=== PATIENT | female | born 1950 | race African-American/Black ===

== ENCOUNTER 2016-08-03 18:25 | Emergency (ER) | payer OTHER ==
[~2016-08-03] VITALS: Ht 162.6 cm; Wt 104.3 kg
[2016-08-03 18:25] VITALS: BP 196/94
[~2016-08-03 18:25] MED LIST: CELEXA 10 MG TA10 M1 PO; LABETALOL 100100 MG PO; RISPERDAL2 MG PO
[2016-08-03] MEDS ORDERED: DEPAKOTE ER500 MG PO (18:30)
[2016-08-03] MEDS ORDERED: LISINOPRIL40 MG PO (18:30)
[2016-08-03] MEDS ORDERED: MAXZIDE-25 MG1 EACH PO (18:31)
[2016-08-03] MEDS ORDERED: BENZTROPINE MES1 MG PO (18:31)
[2016-08-03] MEDS ORDERED: LOVASTATIN 20 M20 MG PO (18:31)
== END 2016-08-03 19:18 | disposition home or self-care (01) ==
LOC: ER 18:25
DX: S01.85XA Open bite of other part of head, initial encounter (principal); S61.552A Open bite of left wrist, initial encounter; S61.551A Open bite of right wrist, initial encounter; S11.95XA Open bite of unspecified part of neck, initial encounter; I10 Essential (primary) hypertension; Y99.8 Other external cause status; F31.9 Bipolar disorder, unspecified; F32.9 Major depressive disorder, single episode, unspecified; Z88.8 Allergy status to other drugs, medicaments and biological substances; W57.XXXA Bitten or stung by nonvenomous insect and other nonvenomous arthropods, initial encounter; Y93.89 Activity, other specified; Y92.89 Other specified places as the place of occurrence of the external cause

== ENCOUNTER 2016-11-23 19:10 | Emergency (ER) | payer OTHER ==
[~2016-11-23] VITALS: Ht 162.6 cm; Wt 95.3 kg
[~2016-11-23 19:10] MED LIST changes: +BENZTROPINE MES1 MG PO; +DEPAKOTE ER500 MG PO; +LISINOPRIL40 MG PO; +LOVASTATIN 20 M20 MG PO; +MAXZIDE-25 MG1 EACH PO
[2016-11-23 19:15] VITALS: BP 136/72
[2016-11-23] MEDS ORDERED: TRAMADOL 50 MG50 MG PO (19:38)
[2016-11-23] MEDS ORDERED: NAPROXEN375 MG PO (19:38)
== END 2016-11-23 20:05 | disposition home or self-care (01) ==
LOC: ER 19:10
DX: S82.51XA Displaced fracture of medial malleolus of right tibia, initial encounter for closed fracture (principal); I10 Essential (primary) hypertension; F31.9 Bipolar disorder, unspecified; Z88.1 Allergy status to other antibiotic agents; X58.XXXA Exposure to other specified factors, initial encounter; Y93.89 Activity, other specified; Y92.89 Other specified places as the place of occurrence of the external cause; Y99.8 Other external cause status

== ENCOUNTER 2017-03-17 20:28 | Emergency (ER) | payer OTHER ==
[~2017-03-17] VITALS: Ht 162.6 cm; Wt 99.8 kg
[~2017-03-17 20:28] MED LIST changes: +NAPROXEN375 MG PO; +TRAMADOL 50 MG50 MG PO
[2017-03-17 20:49] LABS: ABSOLUTE NEUTROPHILS 2.7 thou/uL (1.4-8.2); BASOPHILS 0.7 % (0.0-2.0); EOSINOPHILS 1.4 % (0.0-3.0); HEMATOCRIT 37.8 % (37.0-47.0); HEMOGLOBIN 12.7 gm/dL (12.0-15.0); LYMPHOCYTES 41.9 % (24.0-44.0); MCH 30.3 pg (26.0-34.0); MCHC 33.6 g/dL (28.0-37.0); MCV 90.2 fL (80.0-100.0); MONOCYTES 9.9 % (1.0-8.0); PLATELET COUNT 238 thou/uL (150-400); POLYS 46.1 % (36.0-66.0); RBC 4.19 mil/uL (4.20-5.00); RDW 14.3 % (10.5-14.5)
[2017-03-17 20:53] LABS: MANUAL DIFF NO
[2017-03-17 20:58] LABS: ANION GAP 7 mmol/L (7-16); BUN 18 mg/dL (7-18); CALCIUM 8.7 mg/dL (8.5-10.1); CHLORIDE 110 mmol/L (98-107); CO2 30 mmol/L (21-32); CREATININE 1.2 mg/dL (0.6-1.0); GLUCOSE 96 mg/dL (74-106); POTASSIUM 4.3 mmol/L (3.5-5.1); SODIUM 147 mmol/L (136-145)
[2017-03-17 21:04] LABS: ALBUMIN 3.1 g/dL (3.4-5.0); ALKALINE PHOSPHATASE 93 U/L (46-116); DIRECT BILIRUBIN < 0.1 mg/dL (<0.1-0.3); SGOT 20 U/L (15-37); SGPT 16 U/L (30-65); TOTAL BILIRUBIN 0.3 mg/dL (<0.1-1.0); TOTAL PROTEIN 6.5 g/dL (6.4-8.2)
[2017-03-17 21:21] LABS: URINE BILIRUBIN NEGATIVE (Negative); URINE BLOOD NEGATIVE (Negative); URINE COLOR YELLOW; URINE GLUCOSE-RANDOM* NEGATIVE (Negative); URINE KETONES NEGATIVE (Negative); URINE NITRITE NEGATIVE (Negative); URINE PROTEIN (DIPSTICK) NEGATIVE (Negative); URINE SPECIFIC GRAVITY 1.025 (1.003-1.035)
[2017-03-17 21:22] VITALS: BP 182/95
[2017-03-17] MEDS ORDERED: SENOKOT-S1 TA1 PO (21:24)
[2017-03-17] MEDS ORDERED: CITRATE OF MAG296 ML PO (21:24)
== END 2017-03-17 21:36 | disposition home or self-care (01) ==
LOC: ER 20:28
PROVIDERS: Emergency Medicine
DX: K59.00 Constipation, unspecified (principal); I10 Essential (primary) hypertension; F31.9 Bipolar disorder, unspecified; Z88.8 Allergy status to other drugs, medicaments and biological substances

== ENCOUNTER 2017-04-13 22:53 | Emergency (ER) | payer OTHER ==
[~2017-04-13] VITALS: Ht 162.6 cm; Wt 99.8 kg
[~2017-04-13 22:53] MED LIST changes: +CITRATE OF MAG296 ML PO; +MOBIC7.5 MG PO; +SENOKOT-S1 TA1 PO
[2017-04-13 23:24] LABS: ABSOLUTE NEUTROPHILS 2.7 thou/uL (1.4-8.2); BASOPHILS 1.3 % (0.0-2.0); EOSINOPHILS 1.9 % (0.0-3.0); HEMATOCRIT 38.1 % (37.0-47.0); HEMOGLOBIN 12.7 gm/dL (12.0-15.0); LYMPHOCYTES 39.9 % (24.0-44.0); MCH 29.4 pg (26.0-34.0); MCHC 33.4 g/dL (28.0-37.0); MCV 88.1 fL (80.0-100.0); MONOCYTES 11.3 % (1.0-8.0); PLATELET COUNT 226 thou/uL (150-400); POLYS 45.6 % (36.0-66.0); RBC 4.32 mil/uL (4.20-5.00); RDW 14.6 % (10.5-14.5); WBC 5.9 thou/uL (4.0-11.0)
[2017-04-13 23:24] LABS: URINE BILIRUBIN NEGATIVE (Negative); URINE BLOOD NEGATIVE (Negative); URINE COLOR YELLOW; URINE GLUCOSE-RANDOM* NEGATIVE (Negative); URINE KETONES NEGATIVE (Negative); URINE PROTEIN (DIPSTICK) NEGATIVE (Negative); URINE SPECIFIC GRAVITY 1.015 (1.003-1.035); URINE UROBILINOGEN 0.2 E.U./dl (0.2-1.0)
[2017-04-13 23:27] LABS: URINE LEUKOCYTES-REFLEX TRACE (Negative)
[2017-04-13 23:35] LABS: MANUAL DIFF NO
[2017-04-13 23:51] LABS: CALCIUM 9.3 mg/dL (8.5-10.1); CREATININE 1.2 mg/dL (0.6-1.0); POTASSIUM 3.8 mmol/L (3.5-5.1)
[2017-04-13 23:58] LABS: ALBUMIN 3.1 g/dL (3.4-5.0); TOTAL BILIRUBIN 0.2 mg/dL (<0.1-1.0); TOTAL PROTEIN 6.2 g/dL (6.4-8.2)
[2017-04-14 01:36] VITALS: BP 189/89
== END 2017-04-14 01:38 | disposition home or self-care (01) ==
LOC: ER 22:53
PROVIDERS: Emergency Medicine
DX: R10.30 Lower abdominal pain, unspecified (principal); I10 Essential (primary) hypertension; F31.9 Bipolar disorder, unspecified; Z90.710 Acquired absence of both cervix and uterus; Z88.8 Allergy status to other drugs, medicaments and biological substances

== ENCOUNTER 2017-06-21 05:49 | Emergency (ER) | payer OTHER ==
[~2017-06-21] VITALS: Ht 162.6 cm; Wt 104.3 kg
[2017-06-21 05:50] VITALS: BP 185/88
[2017-06-21] MEDS ORDERED: DELSYM30 MG/5 M1 PO (06:49)
== END 2017-06-21 06:57 | disposition home or self-care (01) ==
LOC: ER 05:49
DX: J06.9 Acute upper respiratory infection, unspecified (principal); I10 Essential (primary) hypertension; F31.9 Bipolar disorder, unspecified; Z90.710 Acquired absence of both cervix and uterus; Z88.8 Allergy status to other drugs, medicaments and biological substances

== ENCOUNTER 2018-11-12 22:53 | Emergency (ER) | payer OTHER ==
[~2018-11-12] VITALS: Ht 162.6 cm; Wt 99.8 kg
[~2018-11-12 22:53] MED LIST changes: +DELSYM30 MG/5 M1 PO
[2018-11-12] MEDS ORDERED: TRAMADOL 50 MG50 MG PO (23:52)
[2018-11-13 00:03] VITALS: BP 173/86
== END 2018-11-13 00:18 | disposition home or self-care (01) ==
LOC: ER 22:53
DX: M71.562 Other bursitis, not elsewhere classified, left knee (principal); M71.561 Other bursitis, not elsewhere classified, right knee; M13.862 Other specified arthritis, left knee; M13.861 Other specified arthritis, right knee; I10 Essential (primary) hypertension; F31.9 Bipolar disorder, unspecified; Z90.710 Acquired absence of both cervix and uterus; Z88.8 Allergy status to other drugs, medicaments and biological substances

== ENCOUNTER 2018-11-20 21:41 | Inpatient (IN) | payer OTHER ==
[~2018-11-20] VITALS: Ht 162.6 cm; Wt 104.9 kg
--- NOTE | ~2018-11-20 | H ---
[facility] [place] [address] HISTORY AND PHYSICAL Name: COLLEEN GAR Room #: 521B-B ADM IN M.R.#: [id number] Admission: 11/21/18 ������������������ Attend Phys: Wilber Winchester MD Discharge: ������������������ Date of : 52 Report #: [id number] THIS REPORT FOR: //name// CC: [facility] physician/PCP Wilber Winchester DATE OF SERVICE: 11/21/2018 PSYCHIATRIC EVALUATION IDENTIFYING INFORMATION: This is a 68-year-old -[place]er female living by herself. CHIEF COMPLAINT: "Depressed." HISTORY OF PRESENT ILLNESS: This is a 68-year-old female who herself is a poor historian, appears perplexed. The patient reports she recently moved to [place] from another stable place, that is the only stressor she has been able to identify. I do not have any collateral information at this time or old medical records. The patient reports since then she has been feeling depressed, anhedonic, low energy, low motivation, isolated, withdrawn. The patient is also worried about her financial situation, she is unable to explain exactly what. As a result, the patient has been experiencing suicidal ideations. She called 911, ambulance brought her to the hospital for further evaluation and treatment. The patient's ER note indicates she has diagnosis of bipolar disorder, schizoaffective disorder, although I do not have any medical records. She is supposed to be on Risperdal Consta, which cannot be confirmed as the pharmacy is closed. The patient denies any auditory or visual hallucinations. Again, she is somewhat of an unreliable historian because of her guardedness. She does not exhibit any racing thoughts, pressured speech, increased goal-directed activity. She denies any recreational drug and alcohol use. Urine drug screen was negative. REVIEW OF SYSTEMS: The patient denies any headache, chest pain, shortness of breath. VITAL SIGNS: Temperature 37.1, pulse 67 per minute, respirations 15 per minute, blood pressure 144/84 mmHg. PAST PSYCHIATRIC HISTORY: The patient reports multiple hospitalizations and suicide attempts in the past. She is not very clear about her diagnosis. Nevertheless, she is being followed up at [facility] and she receives long-term Risperdal Consta shot. It is not sure if it is for bipolar disorder or schizoaffective disorder. The patient endorses past suicide [facility] [address] [place] [address] HISTORY AND PHYSICAL Name: COLLEEN GAR Room #: 521B-B [facility] IN M.R.#: [id number] Admission: 11/21/18 ������������������ Attend Phys: Wilber Winchester MD Discharge: ������������������ Date of : 52 Report #: [id number] attempts. Denies any self-harm behaviors. She denies any rehab treatment for drugs and alcohol. She denies any electroconvulsive therapy. MEDICAL HISTORY: Obesity, hypertension. SURGICAL HISTORY: Cyst removal from the spine, hysterectomy. CURRENT MEDICATIONS: Depakote, risperidone, Cogentin, lovastatin, triamterene/hydrochlorothiazide, meloxicam. ALLERGIES: NORVASC. FAMILY HISTORY: Unknown. PERSONAL AND SOCIAL HISTORY: The patient is guarded, is not a very reliable historian. She is single. She has one son. The patient lives by herself in a senior housing. She receives services at [facility]. The patient denies any recreational drug and alcohol use. MENTAL STATUS EXAMINATION: A 68-year-old -[place] female, appears to be of her stated age. She is casually dressed, disheveled appearing. She is alert and oriented to time, place, person and situation; attentive to the questions of the examiner, though concentration is poor. She exhibits deficit symptoms of affective flattening, monotonous speech, monosyllabic in nature. She appears guarded, somewhat paranoid, but no alyson delusions. She does not appear to be responding to internal stimuli. Mood is depressed. Affect is flat. Immediate, recent and remote memory is intact. Insight and judgment is limited. Suicidal ideations present. No homicidal ideations. She denies any intent or plan at this time. ASSETS: Verbal, cooperative. LIABILITIES: Chronicity of illness, financial issues, housing issues. DIAGNOSES: 1. Major depressive disorder, recurrent, severe with psychotic symptoms versus schizoaffective disorder versus bipolar disorder. 2. Hypertension. 3. Obesity. RECOMMENDATION: At this time, the patient is in a safe environment. She is cooperative. She is eating well, though isolative and withdrawn. She does not exhibit any alyson psychosis or manic symptoms. I will wait till tomorrow to confirm the medications she is taking before starting her on as pharmacy will be open tomorrow. In the meantime, antihypertensives have been started. She is cooperative. We will confirm if the patient needs Risperdal Consta and if she [facility] [address] [place] [address] HISTORY AND PHYSICAL Name: COLLEEN GAR Room #: 521B-B ADM IN .R.#: [id number] Admission: 11/21/18 ������������������ Attend Phys: Wilber Winchester MD Discharge: ������������������ Date of : 52 Report #: [id number] is due for it, otherwise, we will use oral Risperdal with a starting dose of 2 mg. In the meantime, we will support her, give her reality orientation. Monitor sleep, appetite, mood, behavior. ESTIMATED LENGTH OF STAY: 7-10 days. DISCHARGE CRITERIA: Absence of suicidality ideations for 2 consecutive days prior to discharge. ��������������������������������������������� ���������������������������������������� By: ��������������������������������������������� [id number] Hudson Jimenze MD /nt
[2018-11-20 22:10] VITALS: BP 207/106
[2018-11-21 01:36] LABS: AMP/METHAMP Negative (Negative); BARBITURATES Negative (Negative); BENZODIAZEPINES Negative (Negative); COCAINE Negative (Negative); METHADONE Negative (Negative); OPIATES Negative (Negative); PCP Negative (Negative)
[2018-11-21 01:38] VITALS: BP 193/95
[2018-11-21 01:42] VITALS: BP 193/95
[2018-11-21 01:52] LABS: HEMATOCRIT 36.8 % (37.0-47.0); HEMOGLOBIN 11.9 gm/dL (12.0-15.0); MCHC 32.4 g/dL (28.0-37.0); MCV 89.5 fL (80.0-100.0); RBC 4.11 mil/uL (4.20-5.00); RDW 14.6 % (10.5-14.5); WBC 5.8 thou/uL (4.0-11.0)
[2018-11-21 01:59] LABS: URINE BILIRUBIN NEGATIVE (Negative); URINE BLOOD NEGATIVE (Negative); URINE CLARITY CLEAR; URINE COLOR YELLOW; URINE GLUCOSE-RANDOM* NEGATIVE (Negative); URINE KETONES NEGATIVE (Negative); URINE LEUKOCYTES-REFLEX NEGATIVE (Negative); URINE NITRITE-REFLEX NEGATIVE (Negative); URINE PROTEIN (DIPSTICK) NEGATIVE (Negative); URINE SPECIFIC GRAVITY <= 1.005 (1.005-1.035); URINE UROBILINOGEN 0.2 E.U./dl (0.2-1.0)
[2018-11-21 02:02] LABS: CALCIUM 9.4 mg/dL (8.5-10.1); CREATININE 1.1 mg/dL (0.6-1.0); POTASSIUM 3.4 mmol/L (3.5-5.1)
[2018-11-21 02:49] VITALS: BP 98/74
--- NOTE | 2018-11-21 02:50 | NUR ---
Pt admitted from ED. She has sitter for SI plan to OD on home prescription meds. Pt presented in the ED with anxiety, chest discomfort dull ache. She initially denied SI and reported enjoying talking to others in ED and feeling happy to ED nurse. Pt had been in ED last week for knee pain and had been discharged home. Dr went to see pt in ED and she then reported SI. Pt reports recently moving from [address] to [facility]. She discussed not liking to have to share 3 washer and dryers with 3 floors, feelings of paranoia regarding neighbors and hallucinations but was not able to describe details of hallucinations. Pt did report during admission increase in anxiety, fear and plan to OD on home prescribed medications. She also reported having dull ache chest pressure relieved by tylenol. Pt reports hx of HTN, reading glasses, stress incontinence, Schizo affective disorder. She was not able to name any of her medications and stated she had not taken any for over 30 days. Her pharmacy is [facility] and is mail order. Number per [employer] [phone] Message left asking for list to be sent and faxed to [phone]. Skin assessment complete and intact. Pt steady with transfer. Pt on 1:1 until evaluated by
--- NOTE | 2018-11-21 03:02 | NUR ---
Dr Jimenez called regarding pts medication review. Pt was unable to state any of her medications, there is a list of medications in the computer from a previous visit. Dr Jimenez stated he will wait until the am to further review.
--- NOTE | 2018-11-21 03:38 | NUR ---
Pt had [facility] [address] [place] [address] for dprp injection scheduled for 11/04 and therapy for 11/11, per papers in her purse.
[2018-11-21 07:30] VITALS: BP 192/105
--- NOTE | 2018-11-21 09:06 | NUR ---
0730: Report from [facility], care assumed. Resting in bed, supine position, 1:1 sitter present between pts bed and doorway. Refused a.m. meal stated "I'm fasting." Pt encouraged to attend DR for meals and group sessions. Pt hesitant and resistant to instructions. Will attempt to get pt to DR for lunch.
[2018-11-21 19:35] VITALS: BP 144/84
[2018-11-21 23:42] VITALS: BP 144/84
--- NOTE | 2018-11-22 03:26 | NUR ---
PT IN BED RESTING AT [facility] OF SHIFT. PLEASANT AND COOPERATIVE WITH PHYSICAL ASSESSMENT. REMAINED IN ROOM ALL NIGHT, TO THIS POINT, SLEEPING.
[2018-11-22 07:00] VITALS: BP 103/61
--- NOTE | 2018-11-22 09:59 | NUR ---
0720: Report from [facility] shift, care assumed. Ambulatory to independently, initial assessment completed, denies any suicidal ideations. Feeds self, declines meal stating she doesn't like what she rec., alternate menu offered and preferences completed by pt.
[2018-11-22] MEDS ORDERED: OMEPRAZOLE40 MG PO (10:57)
[2018-11-22] MEDS ORDERED: VITAMIN D2400 UNIT PO (10:59)
[2018-11-22] MEDS ORDERED: SPIRONOLACTONE25 M1 PO (11:00)
[2018-11-22] MEDS ORDERED: ASPIRIN325 PO (11:03)
[2018-11-22] MEDS ORDERED: VITAMIN D5000 UNIT PO (11:07)
--- NOTE | 2018-11-22 14:49 | NUR ---
FAXED CLINICALS REQUESTED TO [phone] & ASKED THEY FOLLOW-UP WITH [facility] FOR ADDITIONAL QUESTIONS OR TRANSFER ARRANGEMENTS.
[2018-11-22 19:33] VITALS: BP 172/95
--- NOTE | 2018-11-23 03:45 | NUR ---
ASSUMED CARE FROM DAY SHIFT PT SITTING IN DAY AT TABLE TALKATIVE WITH SOFT SPOKEN VOICED DENIES SI AT THIS TIME, STATES SHE HAD A GOOD DAY WITH GROUP. DID NOT FEEL LONELY WITH PEOLPLE AROUND HER. PT SLEPT WELL THROUGHOUT ROUNDING TOLERATED WELL. WILL CONTINUE WITH CURRENT PLAN OF CARE.
[2018-11-23 09:13] VITALS: BP 140/97
[2018-11-23 09:36] VITALS: BP 140/97
--- NOTE | 2018-11-23 11:56 | NUR ---
PATIENT IS ALERT, UP AND OUT ON THE UNIT. AFFECT IS FLAT, MOOD CALM. PATIENT TOOK ALL HER MORNING MEDICATION WHOLE WITHOUT DIFICULTY. PATIENT IS EATING MEALS AND DRINKING FLUID WELL. PATIENT DENIES SUICIDAL AND HOMOCIDAL IDEATION. PATIENT DENIES AUDITORY/VISUAL HALLUCINATION/ANXIETY. PATIENT RATED DEPRESSION 10/10. DR. BAUTISTA AWARE. PATIENT DISCHARGED HOME TODAY BY DR. CISNEROS, AWAITING PROPOSAL EDITOR FOLLOW-UP APPOINTMENT AND TRANSPORTATION SET-UP. PATIENT IS LOOKING FORWARD TO GOING HOME. CURRENTLY IN DAY ROOM EATING LUNCH. PATIENT DENIES HAVING PHYSICAL PAIN, WILL MONITOR FOR SAFETY.
[2018-11-23 12:52] VITALS: BP 140/97
[2018-11-23 13:22] VITALS: BP 140/97
--- NOTE | 2018-11-23 13:23 | NUR ---
Patient Name: COLLEEN GAR Admission Date: 11/21/18 DISCHARGE PLAN: Pt will discharge to her home. Care Assessment: Pt was assesse by Dr. Guillermo, and diagnosed with Unspecified Bipolar Disorder. Level II Assessment: None Transportation: Pt will be transported by [employer] to her home. Special Instructions/Notes: Pt will need to continue continuance care through [facility]. DISCHARGE TO PLACEMENT: Home Facility: Phone: Fax: Address: Contact Name: Phone: PCP: GIANA Psychiatrist: [facility]
[2018-11-23 14:34] VITALS: BP 140/97
--- NOTE | 2018-11-24 09:25 | D ---
[facility] [place] [address] DISCHARGE SUMMARY Name: COLLEEN GAR Room #: 521B-B [facility] IN M.R.#: [id number] Admission: 11/21/18 ������������������ Attend Phys: Pelon Guillermo DO Discharge: 11/23/18 ������������������ Date of : 52 Report #: [id number] THIS REPORT FOR: //name// CC: Pelon Guillermo FAM physician/PCP DATE OF SERVICE: 11/23/2018 ATTENDING PHYSICIAN: Pelon Guillermo DO. REEL OPERATOR AT TIME OF DISCHARGE: Wilber Winchester MD. DISCHARGE DIAGNOSIS: Other bipolar mood disorder, improved. COMORBIDITIES: Hypertension, on Maxzide and hyperlipidemia, on statin. DISCHARGE INSTRUCTIONS: Discharge diet: Recommend limiting salt and heart healthy diet. She has a 10:00 a.m. appointment next at [facility] for psychiatric hospital discharge, crisis case management. Normal activity level. Avoid alcohol, smoking, or illicit drugs. DISCHARGE MEDICATIONS: Are as follows: Depakote ER 500 mg p.o. at bedtime for mood stabilization, lovastatin 20 mg p.o. at bedtime for hyperlipidemia, triamterene/hydrochlorothiazide 37.5/25 one tab p.o. daily, spironolactone 25 mg p.o. b.i.d., aspirin 325 mg p.o. daily for cardioprotection. Triamterene and spironolactone were for hypertension and potassium replacement and cholecalciferol 5000 International Units p.o. daily for supplementation. LABORATORY DATA: CBC done on 11/21/2018, H and H 11.9 and 36.8, white count 5.8, platelet 262,000. Sodium 143, potassium 3.4, chloride 107, bicarbonate 24, BUN 16, creatinine 1.1, estimated GFR 60, glucose 93, calcium 9.4. Drug screen negative. Serum alcohol less than 10. Again, urinalysis negative. It should be noted that patient is also encouraged to followup with primary care physician with [facility] for anemia and other general medical issues including hypertension and that should be within 1 month. REASON FOR ADMISSION: As follows: A 68-year-old black female who presented to the Emergency Room, reports she recently moved to [place]. The patient has been feeling depressed, anhedonic, low energy, low motivation, isolated, withdrawn. The patient is also worried about her financial situation. She called 911 for evaluation. HOSPITAL COURSE: The patient was admitted to the Adult Psychiatry Unit. Dr. Jimenez had her over the weekend, had some care on Thursday. By the time I saw her on Thursday afternoon, she was not suicidal or homicidal, was future oriented. [address] [address] DISCHARGE SUMMARY Name: RINCOLLEEN Room #: 521B-B DIS IN M.R.#: [id number] Admission: 11/21/18 ������������������ Attend Phys: Pelon Guillermo DO Discharge: 11/23/18 ������������������ Date of : 52 Report #: [id number] She states she goes to a day center at [address] [place] [address] in [place], [place] and she would like to continue doing that. Dr. Nation is her psychiatrist at [facility] and Jerrod Nevarez is her outpatient case manager. The patient has some sisters in the area, but otherwise has limited support. Her insurance company had requested transfer to participate in hospital, which I felt was not in the patient's best interest. She really was not meeting inpatient criteria and issues such as her noncompliance with Risperdal Consta and continutity visits with [facility] will best be done on outpatient basis. PHYSICAL EXAMINATION: VITAL SIGNS: On day of discharge are as follows: Temperature 36.7, pulse 87, respirations 16, BP 140/97. MUSCULOSKELETAL: Normal gait and station. MENTAL STATUS EXAMINATION: This is a well-developed, well-nourished, obese black female, appearing nearly stated age. Attention intact. Concentration intact. Speech normal rate, rhythm and tone. Thought process is linear and goal-directed. Thought content focused on ameliorating her situation. Did do a SLUMS during stay. She scored 18/30. I felt this was somewhat suppressed due to her level of depression, so now she is in mild neurocognitive disorder range and not dementia. Memory not formally tested. Denied SI or HI. Denied auditory, visual, or tactile hallucinations. Fund of knowledge: Low average range. PROGNOSIS: For this patient is fair to guarded depending on her level of [facility] participation and generally healthy living. ��������������������������������������������� <ELECTRONICALLY SIGNED> ���������������������������������������� By: Pelon Guillermo DO ��������������������������������������������� 11/24/18 0925 [id number] Pelon Guillermo DO /nt
== END 2018-11-23 14:20 | disposition home or self-care (01) | DRG 885 ==
LOC: ER 21:41 → EROBS 11-21 01:35 → SBH 11-21 01:35
PROVIDERS: Emergency Medicine; ADMIT Psychiatry & Neurology Psychiatry
DX: F31.30 Bipolar disorder, current episode depressed, mild or moderate severity, unspecified (principal); R45.851 Suicidal ideations; I10 Essential (primary) hypertension; F41.9 Anxiety disorder, unspecified; E78.5 Hyperlipidemia, unspecified; E66.9 Obesity, unspecified; Z68.39 Body mass index [BMI] 39.0-39.9, adult; Z90.710 Acquired absence of both cervix and uterus; Z79.899 Other long term (current) drug therapy; Z88.8 Allergy status to other drugs, medicaments and biological substances
CPT/HCPCS: 10880

== ENCOUNTER 2018-12-16 22:09 | Inpatient (IN) | payer OTHER ==
[~2018-12-16] VITALS: Ht 162.6 cm; Wt 99.8 kg
[~2018-12-16 22:09] MED LIST changes: +ASPIRIN325 PO; +OMEPRAZOLE40 MG PO; +SPIRONOLACTONE25 M1 PO; +VITAMIN D2400 UNIT PO; +VITAMIN D5000 UNIT PO
[2018-12-16 22:10] VITALS: BP 138/79
[2018-12-16 22:31] LABS: BASOPHILS 0.5 % (0.0-2.0); EOSINOPHILS 0.1 % (0.0-3.0); HEMATOCRIT 38.3 % (37.0-47.0); HEMOGLOBIN 12.3 gm/dL (12.0-15.0); LYMPHOCYTES 6.8 % (24.0-44.0); MCH 29.2 pg (26.0-34.0); MCHC 32.2 g/dL (28.0-37.0); MCV 90.7 fL (80.0-100.0); MONOCYTES 7.9 % (1.0-8.0); PLATELET COUNT 240 thou/uL (150-400); POLYS 84.7 % (36.0-66.0); RBC 4.23 mil/uL (4.20-5.00); RDW 14.6 % (10.5-14.5); WBC 8.2 thou/uL (4.0-11.0)
[2018-12-16 22:39] LABS: CALCIUM 10.3 mg/dL (8.5-10.1); CREATININE 1.6 mg/dL (0.6-1.0); POTASSIUM 3.9 mmol/L (3.5-5.1)
[2018-12-16 22:48] LABS: MAGNESIUM 1.8 mg/dL (1.8-2.4); TROPONIN-I 0.16 ng/mL (<0.06)
[2018-12-16 23:26] LABS: URINE BILIRUBIN 1+ (Negative); URINE BLOOD NEGATIVE (Negative); URINE CLARITY CLEAR; URINE COLOR YELLOW; URINE GLUCOSE-RANDOM* 1+ (Negative); URINE KETONES 3+ (Negative); URINE LEUKOCYTES-REFLEX NEGATIVE (Negative); URINE NITRITE-REFLEX NEGATIVE (Negative); URINE PROTEIN (DIPSTICK) NEGATIVE (Negative); URINE SPECIFIC GRAVITY 1.025 (1.005-1.035); URINE UROBILINOGEN 0.2 E.U./dl (0.2-1.0)
[2018-12-16 23:52] LABS: AMP/METHAMP Negative (Negative); BARBITURATES Negative (Negative); BENZODIAZEPINES Negative (Negative); COCAINE Negative (Negative); METHADONE Negative (Negative); OPIATES Negative (Negative); PCP Negative (Negative)
[2018-12-17] VITALS (7 sets, daily range): BP systolic 139–190; BP diastolic 64–90
[2018-12-17] MEDS ORDERED: LOPRESSOR25 PO (05:23)
[2018-12-17] MEDS ORDERED: SERTRALINE HCL50 MG PO (05:25)
[2018-12-17] MEDS ORDERED: RISPERDAL2 MG PO (05:26)
[2018-12-17] MEDS ORDERED: CATAPRES-TTS 21 EACH TRANSDERM (05:27)
[2018-12-17] MEDS ORDERED: LEXAPRO 10 MG T10 M2 PO (05:27)
[2018-12-17] MEDS ORDERED: BENZTROPINE MES1 MG PO (05:27)
[2018-12-17] MEDS ORDERED: HYDRALAZINE 2525 MG PO (05:28)
[2018-12-17] MEDS ORDERED: MOBIC7.5 MG PO (05:28)
[2018-12-17] MEDS ORDERED: OMEPRAZOLE40 MG PO (05:29)
[2018-12-17] MEDS ORDERED: DEPAKENE250 MG PO (05:30)
[2018-12-17] MEDS ORDERED: RISPERDAL50 MG/2 ML IM (05:31)
--- NOTE | 2018-12-17 05:32 | NUR ---
INSTRUCTED TO DO MED REC BASED OFF RECENT PRICRIPTION REFILLS PER PROVIDER. PATIENT IS UNRELIABLE FOR MED REC. WILL PASS ON THE DAYS. PATIENT IS ALERT AND ORIENTED. PATIENT STATED SHE DID HAVE SI IN THE PAST BUT PATIENT WAS TREATED INPATIENT HERE BACK IN OCTOBER. PATIENT HAS BEEN TAKING MEDICATION FOR DEPRESSION AND NO LONGER IS A THREAT TO SELF. PATIENT HAS A FLAT AFFECT BUT DOES SMILE AND INTERACT IN A POSITIVE WAY WITH STAFF. PATIENT IS STRESS INCONTIENT PER REPORT. PATIENT IS NPO. PATIENT IS PENDING POSSIBLE ECHO TODAY. PROVIDER AWARE OF ELEVATED TROP. BLOOD PRESSURE IMPROVED ONCE PATIENT WAS SETTLED. PATIENTS PAIN IS TREATED WITH PAIN MED. PATIENT CLAIMED SHE CAME WITH A PURSE BUT EMS AND ER STATED PATIENT DID NOT HAVE A PURSE WITH HER WHEN SHE ARRIVED. PATIENT STATED HER HEAD HURT AND NOT SURE IF SHE LOSS CONSIOUSNESS OR NOT BUT CT WAS NEGATIVE FOR ACUTE PROCESSES. PATIENT LIVES ALONE WITH HH VISITING M-F [id number]. PATIENT IS RESTING COMFORTABLY IN BED. WCM. PATIENT IS PROGRESSING TO GOALS.
[2018-12-17 07:56] LABS: CREATININE 1.4 mg/dL (0.6-1.0); POTASSIUM 3.7 mmol/L (3.5-5.1); TROPONIN-I 0.42 ng/mL (<0.06)
[2018-12-17 08:02] LABS: CALCIUM 9.5 mg/dL (8.5-10.1)
--- NOTE | 2018-12-17 08:27 | EKG ---
[place] [address] [facility] [address] ELECTROCARDIOGRAM REPORT Name: COLLEEN GAR Room #: 358-P ADM IN M.R.#: [id number] ������������������ Admission: 12/17/18 ������������������ Attend Phys: Pelon Daly MD Discharge: ������������������ Date of : 52 Report #: [id number] ����������������������������������������������������������������� [id number] THIS REPORT FOR: //name// [facility] ED Test Date: 2018-12-16 Test Time: 22:57:38 Pat Name: COLLEEN GAR Department: Room: 358 Gender: F Case Maker: [email or web address] : 1950 Requested By: Sharath Mendosa Order Number: [id number] MD: Rizwan Peres Measurements Intervals [place] Rate: 84 P: 48 FL: 147 QRS: 5 QRSD: 99 T: 68 QT: 349 QTc: 413 Interpretive Statements Sinus rhythm RSR' in V1 or V2, probably normal variant Borderline T wave abnormalities Compared to ECG 03/21/2017 06:25:42 no significant change was found Electronically Signed On 12-17-2018 8:27:41 CDT by Rizwan Peres [email or web address] ��������������������������������������������� <ELECTRONICALLY SIGNED> ���������������������������������������� By: Rizwan Peres MD, [facility] ��������������������������������������������� 12/17/18 0827 [id number] 225 Rizwan Peres MD, [facility] /EPI
[2018-12-17] MEDS ORDERED: ZOCOR20 MG PO (08:55)
--- NOTE | 2018-12-17 09:50 | 2DMMODE ---
[facility] [address] [place] [address] 2 D/M-MODE ECHOCARDIOGRAM Name: RINCOLLEEN Room #: 358-P [facility] IN .R.#: [id number] ������������� Admission: 12/17/18 ������������� Attend Phys: Pelon Daly MD Discharge: ��� ������������� ��� Date of : 52 Date of Service: 12/17/18 0950 �� Report #: [id number] �������� ��������������������������������������������[id number] THIS REPORT FOR: //name// APPROVED REPORT Study performed: 12/17/2018 08:21:15 EXAM: Comprehensive 2D, Doppler, and color-flow Echocardiogram Patient Location: Bedside Room #: 358 Status: routine BSA: 2.08 HR: 68 bpm BP: 151/75 mmHg Rhythm: NSR Other Information Study Quality: Good Indications Diabetes Dyspnea Elevated Troponin Hypertension/HDD 2D Dimensions IVSd: 12.78 (7-11mm) LVOT Diam: 18.41 (18-24mm) LVDd: 43.23 mm PWd: 12.80 (7-11mm) Ascending Ao: 31.74 (22-36mm) LVDs: 22.96 (25-40mm) Aortic Root: 29.41 mm IVC: 16.00 mm Volumes Left Atrial Volume (Systole) Single Plane 4CH: 75.87 mL Single Plane 2CH: 44.10 mL LA ESV Index: 31.00 mL/m2 Aortic Valve AoV Peak Paresh.: 1.90 m/s AO Peak Gr.: 14.43 mmHg LVOT Max P.87 mmHg LVOT Max V: 1.79 m/s ALBA Vmax: 2.51 cm2 Mitral Valve E/A Ratio: 0.7 [facility] [address] [place] [address] 2 D/M-MODE ECHOCARDIOGRAM Name: TEDDY GARGILBERT Room #: 358-P [facility] IN [facility].#: [id number] ������������� Admission: 12/17/18 ������������� Attend Phys: Pelon Daly MD Discharge: ��� ������������� ��� Date of : 52 Date of Service: 12/17/18 0950 �� Report #: [id number] �������� ��������������������������������������������[id number] MV Decel. Time: 304.91 ms MV E Max Paresh.: 0.76 m/s MV A Paresh.: 1.13 m/s MV PHT: 88.42 ms IVRT: 133.79 ms Pulmonary Valve PV Peak Paresh.: 0.91 m/s PV Peak Gr.: 3.34 mmHg Pulmonary Vein P Vein S: 0.64 m/s P Vein A: 0.31 m/s P Vein D: 0.33 m/s P Vein A Dur.: 129.2 msec P Vein S/D Ratio: 1.94 Tricuspid Valve TR Peak Paresh.: 2.77 m/s TR Peak Gr.: 30.63 mmHg PA Pressure: 35.00 mmHg Left Ventricle The left ventricle is normal size. There is normal LV segmental wall motion. Mild concentric left ventricular hypertrophy. Left ventricular systolic function is hyperdynamic. LVEF is >65%. Grade I - abnormal relaxation pattern. Right Ventricle The right ventricle is normal size. The right ventricular systolic function is normal. Atria The left atrium size is normal. The right atrium size is normal. Aortic Valve The aortic valve is normal in structure. No aortic regurgitation is present. There is no aortic valvular stenosis. Mitral Valve The mitral valve is normal in structure. Trace mitral regurgitation. No evidence of mitral valve stenosis. Tricuspid Valve The tricuspid valve is normal in structure. There is trace tricuspid regurgitation. Estimated PAP 35 mmHg. There is mild pulmonary hypertension. [facility] [address] [place] [address] 2 D/M-MODE ECHOCARDIOGRAM Name: COLLEEN GAR Room #: 358-P [facility] IN M.R.#: [id number] ������������� Admission: 12/17/18 ������������� Attend Phys: Pelon Daly MD Discharge: ��� ������������� ��� Date of : 52 Date of Service: 12/17/18 0950 �� Report #: [id number] �������� ��������������������������������������������[id number] Pulmonic Valve The pulmonary valve is normal in structure. There is no pulmonic valvular regurgitation. Great Vessels The aortic root is normal in size. IVC is normal in size and collapses >50% with inspiration. Pericardium There is no pericardial effusion. <Conclusion> The left ventricle is normal size. Mild concentric left ventricular hypertrophy. Left ventricular systolic function is hyperdynamic. Grade I - abnormal relaxation pattern. The right ventricle is normal size. The left atrium size is normal. The right atrium size is normal. The aortic valve is normal in structure. Trace mitral regurgitation. There is trace tricuspid regurgitation. Estimated PAP 35 mmHg. ��������������������������������������������� <ELECTRONICALLY SIGNED> ���������������������������������������� By: Emigdio Anderson MD ��������������������������������������������� 12/17/1850 Emigdio Anderson MD /INF
--- NOTE | 2018-12-17 11:24 | NUR ---
Pt brought down from floor by [employer]. Was informed by [employer] that the nurse on the floor reported having touble with hypoglycemia. Pt slow to speak, responds to this nurses questions. Checked blood sugar at 1036 in CV holding 51. Ordered stat blood glucose. Gave 25ml D50IV push. Called Physician new orders recieved for fluids. Rechecked blood glucose at 1105 99. Stress test performed. Pt tolerated procedure well. Started D5 0.45 NS per orders at 1110. No s/sx of cardiac or respirtory distress. Continuing to monitor.
--- NOTE | 2018-12-17 14:02 | NUR ---
ASSESSMENT: CM REVIEWED CHART AND MET WITH PATIENT AT BEDSIDE. PT WAS ADMITTED WITH INCREASED TROPONIN AND WEAKNESS. PT REPORTS SHE LIVES IN AN APT ALONE. PT REPORT SHE HAS NO STEPS TO ENTER. PT REPORTS HAVING A WALKER. PT STATES SHE HAS A CASEWORK THROUGH [employer] (CM ATTEMPTED TO CONTACT THE NUMBER LISTED BY NUMBER DOES NOT WORK). PT REPORTS THAT SHE HAS BEEN TO [facility] FOR A BRIEF STAY AND HAS HX OF SCHIZOPHRENIA/ANXIETY. PT REPORTS THAT SHE HAS BEEN TO [facility] IN THE PAST WELL YEARS AGO. CM DISCUSSED ROLE. PT STATES SHE HAS HELPER COME IN HER HOME ONCE A WEEK THROUGH HER MEDICAID WHERE THEY HELP ASSIST HER. CM DISCUSSED ROLE. PT STATES SHE MAY BENEFIT FROM AND WANTED REFERRAL SENT TO [facility]. CM SENT REFERRAL. [facility]:[phone] [facility] FAX:[phone]
--- NOTE | 2018-12-17 15:54 | EKG ---
[address] [place] [place] [address] ELECTROCARDIOGRAM REPORT Name: COLLEEN GAR Room #: 358-P ADM IN M.R.#: [id number] ������������������ Admission: 12/17/18 ������������������ Attend Phys: Pelon Daly MD Discharge: ������������������ Date of : 52 Report #: [id number] ����������������������������������������������������������������� [id number] THIS REPORT FOR: //name// [facility] ED Test Date: 2018-12-16 Test Time: 22:29:02 Pat Name: COLLEEN GAR Department: Room: 358 Gender: F Barrel Assembler: JOSÉ LUIS : 1950 Requested By: Sharath Mendosa Order Number: [id number] MD: Emigdio Anderson Measurements Intervals [place] Rate: 95 P: 52 [place]: 147 QRS: 4 QRSD: 88 T: 82 QT: 335 QTc: 421 Interpretive Statements Sinus rhythm Probable left atrial enlargement Borderline T wave abnormalities Compared to ECG 03/21/2017 06:25:42 T-wave abnormality now present Electronically Signed On 12-17-2018 15:54:34 CDT by Emigdio Anderson [email or web address] ��������������������������������������������� <ELECTRONICALLY SIGNED> ���������������������������������������� By: Emigdio Anderson MD ��������������������������������������������� 12/17/18 1554 [id number] Emigdio Anderson MD /MARIO
--- NOTE | 2018-12-17 18:09 | NUR ---
Assumed care of Pt at 0700. Pt AOx3, drowsy, lethargic, difficulty staying awake during conversation. blood sugars low - improved with D50. later started on D5 cont infusion. diet resumed - pt reports no appetite. pt unable to urinate by end of shift - bladder scan showing 550cc - physician notified - to insert multani. pt voicing no particular concerns at this time. sinus on telemetry. pt progressing toward poc goals.
--- NOTE | 2018-12-18 00:17 | NUR ---
PATIENT EDUCATED ON TELE RUNNERS AND INTERFERANCE.
[2018-12-18 03:45] VITALS: BP 147/67
--- NOTE | 2018-12-18 05:27 | NUR ---
PATIENT IS ALERT AND ORIENTED. PATIENT HAS FLAT AFFECT AND NO APPETITE. PATIENTS BLOOD SUGAR HAS BEEN STABLE ON THE D50 FLUIDS. PATIENT DID EAT SOME CRACKERS. LOW FLUID INTAKE. PATIENT HAS A ROSARIO. PATIENT REFUSED TURNS. PATIENT IS UP TIMES ONE. WITH GAIT BELT. PATIENT USES A CANE AT HOME. PSYCH CLEARED PATIENT TO CONTINUE OUTPATIENT CARE ONCE MEDICALLY STABLE. PATIENT IS ROOM AIR. PATIENT DENIES PAIN. PATIENT IS RESTING COMFORTABLY IN BED. WCM. PATIENT IS PROGRESSING TO GOALS
[2018-12-18 07:32] VITALS: BP 147/66
[2018-12-18 16:12] VITALS: BP 136/60
--- NOTE | 2018-12-18 17:57 | NUR ---
Assumed care of Pt at 0700. Pt alert and oriented, flat affect, in no distress. appetite slowly improving. not voicing any concerns. multani in place - small concentrated output. sinus on telemetry. vitals stable. will cont to monitor. slow progres toward poc goals.
[2018-12-18 19:45] VITALS: BP 151/78
[2018-12-19 03:58] VITALS: BP 154/79
--- NOTE | 2018-12-19 05:01 | NUR ---
SLEPT MOST OF SHIFT. TURNS SELF. ASSIST UP TO COMODE NEEDED. MAINTAIN SAFE ENVIRONMENT. NOTIFIED CONTRACTING EXECUTIVE OF LOW URINE OUTPUT. WILL ENCOURAGE FLUIDS. WORKING ON GOALS AND PLAN OF CARE FOR NOC. NOT PROGRESSING TOWARDS DISCHARGE GOALS. CONTINUE TO ASSES CLOESLY.
[2018-12-19 07:32] VITALS: BP 144/65
[2018-12-19 15:49] VITALS: BP 150/84
--- NOTE | 2018-12-19 18:40 | NUR ---
ASsumed care of pT at 0700. Pt AOx4 flat affect. able to maintain blood sugars while off D5 cont infusion. up to chair for most of day. appetite remains small. low output - physician aware. pt voicing no concerns. slow progress toward poc goals.
[2018-12-19 19:30] VITALS: BP 151/91
[2018-12-20 04:00] VITALS: BP 147/82
--- NOTE | 2018-12-20 04:22 | NUR ---
SLEPT MOST OF SHIFT. ATTEMPTED TO GET UP ONCE WITHOUT ASSIST. BED ALARM ON. MAINTAIN SAFE ENVIRONMENT. WORKING ON GOALS AND PLAN OF CARE. NEEDS FREQUENT REASSURANCE AND EXPLAIN ALL CARES AND MEDICATION. PROGRESSING SLOWLY TOWARDS DISCHARGE GOALS. CONTINUE TO ASSES CLOESLY. ENCOURAGE FLUIDS AND SNACKS. PATIENT ATE 100% HS SNACK.
[2018-12-20 07:17] VITALS: BP 131/66
--- NOTE | 2018-12-20 14:18 | NUR ---
PT IS A&0X3-4, STATES SHE IS UP W/2 ASSIST, REPORTS OF UNKNOWN BM, DX STUDIES SHOW NO BOWEL OBSTRUCTION, WEAK, LOW URINE OUTPUT REPORTED AND VISUALIZED W/REPORT OF PHYSICIANS ALL AWARE, ENCOURAGED HYDRATION, LIKES APPLE JUICE, COMM W/PHYSICIAN FOR MAG CITRATE; GRANTED AND GIVEN. NO C/O PAIN OR OTHER NEEDS, ENCOURAGED HER W/AMB LATER IN THE SHIFT. WILL WALK WITH AIDE AFTER DINNER. STILL NO APPETITE, WILL CONTINUE TO MONITOR
[2018-12-20 15:15] VITALS: BP 149/76
[2018-12-20 19:05] VITALS: BP 126/64
[2018-12-21 04:23] VITALS: BP 118/74
--- NOTE | 2018-12-21 06:04 | NUR ---
RECIEVED REPORT FROM DAY RN THAT PATIENT HAD 25CC OUT OF ROSARIO ON DAYS. NURSE STATED SHE INFORMED DR. AND WAS TOLD TO WATCH AND PUSH FLUIDS. 100CC URINE OUTPUT THIS SHIFT. NOTIFIED HEALTH ASSESSMENT AND TREATMENT TEACHER. NO ORDERS RECIEVED. SLEPT MOST OF SHIFT. WORKING ON GOALS AND PLAN OF CARE FOR NOC. ENCOURAGING FLUIDS. CONTINUE TO ASSES CLOESLY.
[2018-12-21 07:09] VITALS: BP 138/79
--- NOTE | 2018-12-21 14:01 | NUR ---
PT EDUCATED ON RECENT TELEMETRY CHANGES - UNDERSTANDING THAT STAFF MAY COME IN PERIODICALLY TO CHECK EQUIPMENT AND ENSURE THEY ARE WORKING PROPERLY.
--- NOTE | 2018-12-21 15:41 | NUR ---
on-going assessment: cm reviewed chart and met with patient at the bedside. ATTENDING RECOMMENDING SNF FOR PATIENT AT DISCHARGE. CM PAGED FOR PT/OT TO SEE PATIENT. PT IS RECOMMENDING POST ACUTE CARE. CM DISCUSSED WITH PATIENT AND SHE IS OPEN TO POST ACUTE CARE. PT STATING SHE THINKS SHE WENT SOMEWHERE YEARS AGO BUT CANNOT REMEMBER WHERE. PT STATES SHE HAS NO PREFERENCE OF FACILITY. PT HAS [facility] DUAL PLAN AND WILL NEED PRIOR AUTH FOR POST ACUTE CARE. PT WANTED REFERRALS SENT TO [facility] TO SEE IF THEY ACCEPT HER INSURANCE AND ALSO [facility]. CM FAXED REFERRALS. CM WILL CONTINUE TO FOLLOW TO ASSIST NEEDED.
--- NOTE | 2018-12-21 18:03 | NUR ---
Assumed care of Pt at 0700. Pt alert and oriented x4 very flat withdrawn affect. up to chair for most of day. ambulated around with PT. multani d/c'd per physician. minimal intake. poor appetite. voicing no concerns. maintaining sugars without IV fluids. slow progress toward poc goals.
[2018-12-21 19:45] VITALS: BP 147/74
[2018-12-22 03:39] VITALS: BP 134/64
--- NOTE | 2018-12-22 05:32 | NUR ---
PT MAKING PROGRESS TOWARDS GOALS. PT GIVEN MAG CITRATER PER DAY RN. PT DID HAVE MODERATE SIZED LOOSE STOOL AT SHIFT CHANGE THEN AGAIN IN THE EVENING. INCONTINENT SLIGHTLY OF BOWEL. PT UP WITH SBA TO USE THE BATHROOM.
[2018-12-22 08:08] VITALS: BP 153/73
--- NOTE | 2018-12-22 11:36 | NUR ---
ON-GOING ASSESSMENT: CM REVIEWED CHART AND SPOKE WITH LIASON FROM [facility]. THEY STATE THEY ARE UNABLE TO ACCEPT PATIENT DUE TO HX OF SCHIZOPHRENIA. [facility]EVAN MERIDA CAME AND EVALUATED PATIENT AND FEEL SHE IS A GREAT CANIDATE SO ARE STARTING THE AUTH PROCESS. IF [facility] GETS INSURANCE AUTH CM WILL CONTACT BEDSIDE RN. REPORT FOR [facility]:[phone] AND FAX DISCHARGE ORDERS TO:[phone]. CHART COPY WAS ORDERED AND UNIT SECRTARY NOTIFIED. CM WILL CONTINUE TO FOLLOW TO ASSIST NEEDED.
[2018-12-22 11:40] VITALS: BP 156/84
[2018-12-22 16:45] VITALS: BP 151/83
--- NOTE | 2018-12-22 17:24 | NUR ---
PATIENT HAS RESTED IN ROOM THROUGHT THE DAY. INCONTINENT OF BOWEL AND BLADDER. SHE DOES NOT SEEM TO BE IN PAIN. RESPIRATIOS ARE NO LABORED. SHE IS PLEASANT WITH CARE. MAYBE DISCHARGED IN AM. UP ON RECLINER AND TOLERATED WELL. WILL CONT WITH PLAN OF CARE.
[2018-12-22 19:30] VITALS: BP 152/82
[2018-12-23 03:45] VITALS: BP 138/77
[2018-12-23 07:23] VITALS: BP 148/73
--- NOTE | 2018-12-23 07:25 | NUR ---
SLEPT MOST OF SHIFT. UP TO BATHROOM WITH STANDBY ASSIST. MAINTAIN SAFE ENVIRONMENT. INCONTINENT AT TIMES. WORKING ON GOALS AND PLAN OF CARE FOR NOC. PROGRESSING SLOWLY TOWARDS DISCHARGE GOALS TO SKILLED UNIT. CONTINUE TO ASSES CLOESLY. TELEMETRY SHOWS SR 60'S WHEN AWAKE AND 35-50 WHEN SLEEP.
[2018-12-23] MEDS ORDERED: COLACE 100 MG100 MG PO (12:21)
[2018-12-23 15:15] VITALS: BP 164/87
--- NOTE | 2018-12-23 15:15 | NUR ---
on-going assessment: CM REVIEWED CHART AND MET WITH PATIENT AT THE BEDSIDE. PT REPORTS SHE HAS FURTHER HELP AT HOME IN HER APT THROUGH [facility] THROUGH HER MEDICAID AND AN AIDE COMES OVER AND IS ABLE TO RUN ERRANDS AND TO THE STORE FOR HER. ISABEL SPOKE WITH LIASON FROM [facility] WHO STATES THEY ARE STILL WAITING ON INSURANCE AUTH. CM WILL CONTACT BEDSIDE RN IF WE GET AUTH. REPORT FOR [facility]:[phone] AND FAX DISCHARGE ORDERS TO:[phone]. CHART COPY WAS ORDERED AND UNIT SECRTARY NOTIFIED. CM WILL CONTINUE TO FOLLOW TO ASSIST NEEDED.
--- NOTE | 2018-12-23 18:35 | NUR ---
CONT TO IMPROVE SIGNIFICANTLY TODAY. SHE IS UP ON CHAIR AND AMBULATES WITH MINIMAL ASSIST. SHE IS ALERT ORIENTED X4. QUITE PLEASANT. RESPIRATIONS NON LABORED. WILL CONT WITH PLAN OF CARE.
[2018-12-23 19:40] VITALS: BP 181/90
--- NOTE | 2018-12-23 21:12 | NUR ---
PATIENT IS ALERT AND ORIENTED. PATIENT IS SINUS EUGENIA. PATIENT WAS COMPLIANT WITH TAKING MEDICATIONS. PATIENT IS ACHS FOR HYPOGLYCEMIA. PATIENT IS PENDING PLACEMENT FOR [facility]. PATIENT COME FROM HOME WITH HH. PATIENT KUB SHOWED SOME MILD CONSTIPATION BUT PATIENT DOESN'T FEEL CONSTIPATED. PATIENT HAS OUTBURST OF YELLING AT TIMES DUE TO PATIENT SCHIZOAFFECTIVE DISORDER. PATIENT HAS SOME ARTHRITISIS TO KNEE WITH STIFFNESS PATIENT REFUSES PAIN MEDICATION AT THIS TIME. PATIENT IS RESTING COMFORTABLY IN BED. WCM. PATIENT IS PROGRESSING TO GOALS.
[2018-12-24 04:10] VITALS: BP 138/66
--- NOTE | 2018-12-24 06:44 | NUR ---
Arrived on the floor around 2300. A/O, flat. patient denied pain, no n/v. bed rest.
[2018-12-24 08:21] VITALS: BP 142/72
[2018-12-24 17:21] VITALS: BP 165/89
--- NOTE | 2018-12-24 19:38 | NUR ---
Assessment completed.vss.Pt in and out of bed to bathroom with assist.Pt was up in chair for over 2 hours today and also for lunch and dinner.Good appetite noted. Dr Jimenez here,no new order noted.Pt will possibly dc to snf tomorrow. No verbal c/o at present.Will continue to monitor.
[2018-12-24 20:00] VITALS: BP 185/97
--- NOTE | 2018-12-25 00:44 | NUR ---
PT WAS OBSERVED SITTING UP IN A CHAIR WATCHING TV AT THE START OF SHIFT.PT DENIED PAIN,NV.BG AT HS WAS 72,FOOD OFFERED AND PT WAS ABLE TO EAT SOME OF IT.PT UP TO THE BR WITH SBA.NO BM NOTED THIS SHIFT.PT RESTING ON HER BED AT THIS TIME.FALL PRECAUTIONS IN PLACE,CALL LIGHT WITHIN REACH.
[2018-12-25 04:26] VITALS: BP 149/68
[2018-12-25 09:07] VITALS: BP 137/77
--- NOTE | 2018-12-25 09:42 | NUR ---
RECEIVED PT APPROX 0715. A/O/FLAT. DENIES PAIN. NO NOTED SOA. NO NV. ASSISTED WHEN UP TO BATHROOM. PT RESTING IN BED AT THIS TIME. MEDS GIVEN ORDERED. WILL CONT. TO MONITOR.
[2018-12-25 20:15] VITALS: BP 154/90
[2018-12-26 03:45] VITALS: BP 135/77
--- NOTE | 2018-12-26 05:16 | NUR ---
ASSUMED CARE AT 1900, ASSESSMENT COMPLETED. PT DENIES PAIN, NAUSEA, OR SOB. UP IN CHAIR FOR SEVERAL HOURS BEFORE GOING TO BED; SHE HAS REMEMBERED TO USE THE CALL LIGHT BUT WILL GET UP IMMEDIATELY AFTER PRESSING THE BUTTON, AND SHE KNOWS HOW TO TURN THE CHAIR ALARM OFF; REQUIRED IMMEDIATE CHECK BY STAFF AT THESE TIMES. HAD LARGE AMOUNT OF INCONT. URINE UPON GETTING UP FROM CHAIR, BUT PT ACTED THOUGH SHE DIDN'T REALIZE SHE HAD URINATED--HAD TO ASK PT TO GO TO BATHROOM AND CHANGE UNDERWEAR. HAS SLEPT THE REST OF THE NIGHT, NO OTHER CONCERNS, WILL CONTINUE TO MONITOR.
[2018-12-26 07:57] VITALS: BP 146/103
--- NOTE | 2018-12-26 14:01 | NUR ---
ASSUMED CARE AT 0700, SHIFT ASSESSMENT DONE, MEDS GIVEN, VSS. DENIES ANY PAIN, NAUSEA, VOMITING. ACHS, NO COVERGE, BSUGAR HAS BEEN BELOW 150. UP WITH STANDBY ASSIST, WILL CONTINUE TO ASSESS AND ASSIST WITH ADLs NEEDED.
[2018-12-26 19:27] VITALS: BP 151/94
--- NOTE | 2018-12-27 04:03 | NUR ---
ASSUMED CARE AT 1900, ASSESSMENT COMPLETED. PT HAS NO COMPLAINTS, DENIES PAIN/NAUSEA/SOB. REMINDED PT TO CALL FOR ASSISTANCE IF SHE NEEDS TO GET UP, FALL PRECAUTIONS IN PLACE. FLAT AFFECT, HAS SLEPT MOST OF THE NIGHT. NO FURTHER CONCERNS, EXPECT D/C TODAY PENDING INSURANCE AUTHORIZATION, WILL CONTINUE TO MONITOR.
[2018-12-27 04:07] VITALS: BP 150/78
[2018-12-27 07:58] VITALS: BP 159/96
--- NOTE | 2018-12-27 14:19 | NUR ---
ON-GOING ASSESSMENT: CM WAS NOTIFIED LATE THIS AM BY LIASON AT [facility] ([facility]) THAT PATIENT WAS DENIED FOR ACUTE REHAB. CM NOTIFIED ATTENDING THAT PATIENT WAS DENIED ACUTE REHAB AT [facility]. PLANS ARE FOR PATIENT TO GO HOME WITH .
--- NOTE | 2018-12-27 15:14 | NUR ---
Following for d/c planning needs. Reviewed chart and spoke with nurse, PT and pt. PT is recommending pt go to post acute care facility. Also spoke with [facility] clinical case manager Michelle Elder ([phone]). She has been working with pt in trying to get her into [facility] for more supervised care. Michelle said she has been trying to obtain guardianship for pt, or least financial conservatorship. Referral sent to [place] for possible SNF placement. Pt states she had received carrera for her apartment from technical service rep at [facility] and lost the carrera. She said it was the master carrera and so no one at the [facility] is able to assist her with getting into her apartment. Spoke with Michelle re: carrera situation and she spoke with technical service rep at [facility] and will have maintenance assist with getting pt into her apartment. Will await return call from [place] re: placement and review with [facility] clinical case manager.
--- NOTE | 2018-12-27 15:59 | NUR ---
FAXED REFERRAL TO [facility] LEFT MSG WITH TARSHA IN ADM TO REVIEW. DCP TO FOLLOW.
--- NOTE | 2018-12-27 16:12 | NUR ---
Assumed pt care at 7am.Pt in and out of bed with assist.Assessment completed. vss.Pt has poor appetite but blood sugar has been stable.Po fluid and snacks encouraged.Bed and chair alarm in use.Pt dc home was postponed till tomorrow. Pt up in chair at present with alarm on. Will continue to monitor.
[2018-12-27 16:33] VITALS: BP 160/92
[2018-12-27] MEDS ORDERED: ACETAMINOPHEN325 M1 PO (16:38)
[2018-12-27] MEDS ORDERED: CATAPRES-TTS 20.2 MG TRANSDERM (16:38)
[2018-12-27 20:14] VITALS: BP 185/85
[2018-12-28 04:19] VITALS: BP 140/80
--- NOTE | 2018-12-28 04:34 | NUR ---
ASSUMED CARE AT 1900, ASSESSMENT COMPLETED. PT DENIES ANY KNEE PAIN TONIGHT, BUT DOES C/O ITCHING ON HER LEGS; GAVE DOSE OF PO BENADRYL FOR SOME RELIEF. NO NAUSEA OR SOB. PT REPORTS NO BM IN A COUPLE OF DAYS, ASKED IF SHE WOULD TAKE PRUNE JUICE OR COFFEE TO STIMULATE A BM, BUT PT DECLINED BOTH. POOR APPETITE BUT DID HAVE ICE CREAM AROUND SHIFT CHANGE. NO OTHER CONCERNS, WILL CONTINUE TO MONITOR.
[2018-12-28 08:55] VITALS: BP 156/90
--- NOTE | 2018-12-28 10:45 | NUR ---
Assess due to length of stay. Admit with weakness, hypoglycemia. Hx schizophrenia, CKD. Appetite down for few days but pt states ate better this am. No hx of wt loss. Possible discharge today. Low nutrition risk
--- NOTE | 2018-12-28 15:04 | NUR ---
ASSUMED CARE AT 0700, SHIFT ASSESSMENT DONE, MEDS GIVEN, VSS. DENIES ANY NAUSEA, VOMITING, PAIN. INCONTINENT AT TIMES. ACHS, BLOOD SUGAR WAS LOW THIS AM. APPETITE REMAINS POOR, ENCOURAGED TO EAT. OFFERED JUICE AND PUDDING. DOES NOT WANT TO EAT MUCH. AWAITING FOR STATE END USER CONSULTANT TO COME AND SEE THE PATIENT. WILL CONTINUE TO ASSESS AND ASSIST WITH ADLs NEEDED.
--- NOTE | 2018-12-28 16:07 | NUR ---
Following for d/c planning needs. Spoke with Michelle Elder with [facility] and she said she was busy and did not have time to go to [facility] to picker tender paperwork for possible admission. [facility] Kristal [facility]. Faxed referral to [facility]. She said she would look at paperwork and speak with Michelle with [facility]. Spoke with Lizzie at [facility] and emailed referral requesting special admissions criteria for possible admission to [facility]. Will remain available to assist as needed.
[2018-12-28 17:30] VITALS: BP 178/90
[2018-12-28 18:32] LABS: CREATININE 1.2 mg/dL (0.6-1.0)
[2018-12-28 20:30] VITALS: BP 182/94
[2018-12-28 23:30] VITALS: BP 145/103
[2018-12-29 04:30] VITALS: BP 118/69
[2018-12-29 05:48] LABS: HEMATOCRIT 37.2 % (37.0-47.0); HEMOGLOBIN 12.2 gm/dL (12.0-15.0); MCH 29.3 pg (26.0-34.0); MCHC 32.7 g/dL (28.0-37.0); MCV 89.6 fL (80.0-100.0); RBC 4.15 mil/uL (4.20-5.00); RDW 14.6 % (10.5-14.5); WBC 5.9 thou/uL (4.0-11.0)
[2018-12-29 06:14] LABS: ALBUMIN 2.8 g/dL (3.4-5.0); CALCIUM 9.5 mg/dL (8.5-10.1); CREATININE 1.2 mg/dL (0.6-1.0); MAGNESIUM 2.3 mg/dL (1.8-2.4); POTASSIUM 3.9 mmol/L (3.5-5.1); TOTAL BILIRUBIN 0.2 mg/dL (<0.1-1.0); TOTAL PROTEIN 6.3 g/dL (6.4-8.2)
--- NOTE | 2018-12-29 06:55 | NUR ---
ASSUMED CARE AT 1900, ASSESSMENT COMPLETED. PT WITH FLAT AFFECT, DENIES PAIN/NAUSEA/SOB. REQUIRES STRONG ENCOURAGEMENT TO EAT/DRINK. PT SET OFF BED ALARM TWICE OVERNIGHT GOING TO TOILET; HAD TWO LARGE SOFT BM'S, INCONTINENT AND REQUIRING FULL CLEAN UP. SECOND TIME PT WAS ASSISTED TO SHOWER AND HAD FULL LINEN CHANGE. PT HAS SLEPT THE REST OF THE NIGHT. PT HAD ELEVATED BP, BUT WAS GIVEN LISINOPRIL JUST AFTER SHIFT CHANGE, BY AM BP HAD COME DOWN TO A BETTER LEVEL. NO OTHER CONCERNS, WILL CONTINUE TO MONITOR.
[2018-12-29 09:47] VITALS: BP 133/78
--- NOTE | 2018-12-29 15:58 | NUR ---
Following for d/c planning needs. Received confirmation from [facility] of receipt of [id number] forms. Called [facility]re[facility] and left message for UMAIR Cooper ([phone]).
[2018-12-29 19:33] VITALS: BP 153/95
[2018-12-30 04:48] VITALS: BP 185/90
--- NOTE | 2018-12-30 05:28 | NUR ---
ASSSESSMENT COMPLETED AT START OF SHIFT.PT SET OFF BED ALARM X1 DURING THE NIGHT,WAS A LITTLE AGITATED WHEN SHE GOT OUT OF BED,WANTED THE TV TURNED OFF.PT SPENT A FEW MINUTES STANDING BY HER BEDSIDE STILL AGITATED,WAS ENCOURAGED TO GET BACK IN BED AND SLEEP.UP WITH ASSIST X1 TO BSC.PT RESTING ON HER BED AT THIS TIME.FALL PRECAUTIONS IN PLACE,CALL LIGHT WITHIN REACH.
[2018-12-30 09:17] VITALS: BP 134/75
--- NOTE | 2018-12-30 16:40 | NUR ---
Following for d/c planning needs. Received email from [employer] requesting additional information. Sent via secure email. Awaiting return email re: disposition. [facility] is able to accept pt after cleared by [facility]. Received telephone call from Raymundo Reynoso ([phone]) with [facility]. He said he had spoken with Michelle Elder (immigration case worker with [facility]) re: disposition of pt. Raymundo said he will cancel homemaker services in the home if pt goes to SNF on d/c from hospital. Will contact Raymundo with [facility] with disposition information.
[2018-12-30 18:12] VITALS: BP 166/90
[2018-12-30 22:30] VITALS: BP 201/108
[2018-12-31 02:02] VITALS: BP 155/81
[2018-12-31 03:45] VITALS: BP 159/84
--- NOTE | 2018-12-31 05:46 | NUR ---
PT DENID BRAD SO FAR. UP TO THE BR WITH SBA,UNSTABLE ON HER FEET.PT PULLED HER IV DURING THE NIGHT,NEW ONE PUT IN THIS AM ON HER R UPPERARM.PT INCONT OF BLADDER,WEARS BRIEF.POOR APPETITE NOTED,NEEDS CONSTANT ENCOURAGEMENT TO EAT.BG STABLE .ELEVATED BP THIS SHIFT,ASSISTANT HEAD CASHIER NOTIFIED,ORDER NOTED AND CARRIED OUT. FALL PRECAUTIONS IN PLACE.CALL LIGHT WITHIN REACH.
[2018-12-31 07:40] VITALS: BP 141/90
--- NOTE | 2018-12-31 11:46 | NUR ---
ASSESMENT COMPLETED. VSS. A/O/FLAT. DENIES PAIN. NO SOA. NO NV. PT REFUSES TO EAT BREAKFAST AND REFUSES TO DRINK. PT RESTING IN BED AT THIS TIME. WILL CONT. TO MONITOR.
[2018-12-31 16:30] VITALS: BP 160/71
[2018-12-31 16:31] VITALS: BP 160/71
--- NOTE | 2018-12-31 17:09 | NUR ---
Received fax (timed 2029) from [facility] approving special admission category. Notified Yelitza with [facility] and faxed [facility] communication along with PT note from today. Awaiting update from Yelitza re: acceptance.
--- NOTE | 2018-12-31 18:38 | NUR ---
ATTEMPTED TO CALL REPORT TO [facility]- BEEN TRANSFERRED TWICE, NO RESPONSE. PT DCD IN STABLE CONDITION.
--- NOTE | 2019-01-04 15:52 | NUR ---
Received call from Paulette Elder at [facility] requesting info on pt's discharge disposition. SW reviewed chart. Pt was discharged to [facility] on 12/31. Paulette states she was supposed to be notified when pt was discharged, as pt has open cases with the state. No additional SW needs. Case closed.
== END 2018-12-31 18:30 | DRG 682 ==
LOC: ER 22:09 → 3W 12-17 00:57 → EROBS 12-17 00:57 → 3W 12-17 01:58 → 4E 12-23 22:20
PROVIDERS: Emergency Medicine; Internal Medicine Geriatric Medicine; Nurse Practitioner Family; ADMIT Hospitalist
DX: N17.9 Acute kidney failure, unspecified (principal); G92 Toxic encephalopathy; N18.4 Chronic kidney disease, stage 4 (severe); E86.0 Dehydration; F25.9 Schizoaffective disorder, unspecified; K59.00 Constipation, unspecified; E66.01 Morbid (severe) obesity due to excess calories; F41.9 Anxiety disorder, unspecified; E11.22 Type 2 diabetes mellitus with diabetic chronic kidney disease; E11.649 Type 2 diabetes mellitus with hypoglycemia without coma; I12.9 Hypertensive chronic kidney disease with stage 1 through stage 4 chronic kidney disease, or unspecified chronic kidney disease; Z79.1 Long term (current) use of non-steroidal anti-inflammatories (NSAID); Z68.37 Body mass index [BMI] 37.0-37.9, adult; Z79.82 Long term (current) use of aspirin; Z79.899 Other long term (current) drug therapy; Z88.8 Allergy status to other drugs, medicaments and biological substances
CPT/HCPCS: 10084; 10183; 10879

== ENCOUNTER 2019-01-13 02:00 | Inpatient (IN) | payer OTHER ==
[~2019-01-13] VITALS: Ht 280 cm; Wt 99.8 kg
[~2019-01-13 02:00] MED LIST changes: +ACETAMINOPHEN325 M1 PO; +CATAPRES-TTS 20.2 MG TRANSDERM; +CATAPRES-TTS 21 EACH TRANSDERM; +COLACE 100 MG100 MG PO; +DEPAKENE250 MG PO; +HYDRALAZINE 2525 MG PO; +LEXAPRO 10 MG T10 M2 PO; +LOPRESSOR25 PO; +RISPERDAL50 MG/2 ML IM; +SERTRALINE HCL50 MG PO; +ZOCOR20 MG PO
[2019-01-13 02:06] VITALS: BP 154/82
[2019-01-13 03:15] LABS: URINE BILIRUBIN 2+ (Negative); URINE BLOOD 1+ (Negative); URINE CLARITY CLOUDY; URINE COLOR YELLOW; URINE GLUCOSE-RANDOM* NEGATIVE (Negative); URINE KETONES 1+ (Negative); URINE LEUKOCYTES-REFLEX TRACE (Negative); URINE NITRITE-REFLEX NEGATIVE (Negative); URINE PROTEIN (DIPSTICK) TRACE (Negative); URINE SPECIFIC GRAVITY 1.025 (1.005-1.035); URINE UROBILINOGEN 0.2 E.U./dl (0.2-1.0)
[2019-01-13 03:16] LABS: HEMATOCRIT 35.1 % (37.0-47.0); HEMOGLOBIN 11.4 gm/dL (12.0-15.0); MCH 29.2 pg (26.0-34.0); MCHC 32.5 g/dL (28.0-37.0); MCV 89.8 fL (80.0-100.0); PLATELET COUNT 230 thou/uL (150-400); RBC 3.91 mil/uL (4.20-5.00); RDW 14.9 % (10.5-14.5); WBC 5.1 thou/uL (4.0-11.0)
[2019-01-13 03:22] LABS: ANION GAP 11 mmol/L (7-16); BUN 15 mg/dL (7-18); CALCIUM 9.5 mg/dL (8.5-10.1); CHLORIDE 109 mmol/L (98-107); CO2 26 mmol/L (21-32); CREATININE 1.1 mg/dL (0.6-1.0); GLUCOSE 80 mg/dL (74-106); POTASSIUM 3.8 mmol/L (3.5-5.1); SODIUM 146 mmol/L (136-145)
[2019-01-13 03:25] LABS: AMP/METHAMP Negative (Negative); BARBITURATES Negative (Negative); BENZODIAZEPINES Negative (Negative); COCAINE Negative (Negative); METHADONE Negative (Negative); OPIATES Negative (Negative); PCP Negative (Negative)
[2019-01-13 03:26] LABS: SALICYLATE < 2.8 mg/dL (2.8-20.0)
[2019-01-13 03:47] LABS: SQUAMOUS 4-10 Moderate /LPF (0-3); URINE RBC 3-10 Few /HPF (0-2); URINE WBC-REFLEX 0-5 Rare /HPF (0-5)
[2019-01-13 03:48] LABS: BACTERIA-REFLEX 1-9 Few /HPF (None Seen); CASTS None Seen /LPF (None Seen); CRYSTALS None Seen /LPF (None Seen); MUCUS 4-6 Moderate strn/LPF (None Seen)
[2019-01-13 04:21] LABS: ABSOLUTE NEUTROPHILS 3.3 thou/uL (1.4-8.2)
[2019-01-13 04:22] LABS: PLATELET ESTIMATE NORMAL
[2019-01-13 04:23] LABS: LARGE PLATELETS FEW; POIKILOCYTOSIS 1+; POLYCHROMASIA 1+
[2019-01-13] MEDS ORDERED: VALPROIC ACID250 MG PO (04:25)
[2019-01-13] MEDS ORDERED: BENZTROPINE MES1 MG PO (04:26)
[2019-01-13] MEDS ORDERED: HYDRALAZINE 5050 MG PO (04:27)
[2019-01-13] MEDS ORDERED: HYDRALAZINE 2525 MG PO (04:27)
[2019-01-13] MEDS ORDERED: SPIRONOLACTONE25 M1 PO (04:28)
[2019-01-13] MEDS ORDERED: MAXZIDE-25 MG1 EACH PO (04:29)
[2019-01-13] MEDS ORDERED: RISPERIDONE2 MG PO (04:29)
[2019-01-13] MEDS ORDERED: METOPROLOL TART25 MG PO (04:29)
[2019-01-13] MEDS ORDERED: ESCITALOPRAM OX10 MG PO (04:30)
[2019-01-13] MEDS ORDERED: MOBIC7.5 MG PO (04:31)
[2019-01-13] MEDS ORDERED: SERTRALINE HCL100 MG PO (04:32)
[2019-01-13 04:45] VITALS: BP 181/82
[2019-01-13 05:15] VITALS: BP 160/98
--- NOTE | 2019-01-13 05:35 | NUR ---
ADMISSION NOTE: THE PT CAME FROM THE ER VIA CART. THE PT IS ORIENTED X 2, CONFUSED AT TIMES. UNRESPONSIVE WHEN ASSESSING THE PT, SHE ANSWERED SOME QUESTIONS, AND SOME SHE WOULD NOT ANSWER. SHE WAS FOUND CRAWLING DOWN [address] ON HER HANDS AND KNEES, SHE STATED THAT SHE WAS ON HER WAY TO THE HOSPITAL. HAS A HISTORY OF HTN, SCHIZOAFFECTIVE DISORDER, PARANOID AT TIMES, [place] [facility] [place]. SHE HAS STRESS INCONTINENCE, WAS HERE IN OCTOBER 2018, SHE HAD A PLAN TO TAKE PILLS OR USE A KNIFE. SHE HAS WEAKNESS. STARTED ON 12 MINUTE CHECKS FOR HER SAFETY.
--- NOTE | 2019-01-13 08:32 | EKG ---
[place] [address] [facility] [employer] [address] ELECTROCARDIOGRAM REPORT Name: RINCOLLEEN Room #: 519B-B ADM IN M.R.#: [id number] ������������������ Admission: 01/13/19 ������������������ Attend Phys: Pelon Guillermo DO Discharge: ������������������ Date of : 52 Report #: [id number] ����������������������������������������������������������������� [id number] THIS REPORT FOR: //name// [facility] ED Test Date: 2019-01-13 Test Time: 02:50:10 Pat Name: COLLEEN GAR Department: Room: [facility] Gender: F Box Toe Cementer: : 1950 Requested By: Sharath Mendosa Order Number: [id number] MD: Rizwan Peres Measurements Intervals [place] Rate: 83 P: 35 [place]: 152 QRS: -4 QRSD: 96 T: 101 QT: 338 QTc: 398 Interpretive Statements Sinus rhythm Abnormal R-wave progression, early transition Nonspecific T abnormalities Compared to ECG 12/16/2018 22:57:38 No significant changes Electronically Signed On 01-13-2019 8:32:41 CDT by Rizwan Peres [email or web address] ��������������������������������������������� <ELECTRONICALLY SIGNED> ���������������������������������������� By: Rizwan Peres MD, [facility] ��������������������������������������������� 01/13/19 0832 9 9 Rizwan Peres MD, [facility] /EPI
[2019-01-13 09:55] VITALS: BP 156/95
--- NOTE | 2019-01-13 10:32 | NUR ---
PSYCHOSOCIAL ASSESSMENT Diagnosis: Schizophrenia Admit Date: 01/13/19 Psychiatrist: AMELIA Symptoms associated with current admission: Hallucinations Activity level change Violence/aggression Others Presenting problems: Pt was wandering away from home. Pt soiled on herself in public. Precipitating Factors: Non-compliance psychothx Non-compliance medication Comments: Pt was not compliant with medication. Pt was having hallucination that she was going to be stabbed in the back. History of High Risk Behavors: Hx violence/aggression Other Suicide Risk Factors: D A-Signs of alcohol/substance abuse w/ suicide ideation B-Recent suicidal thoughts or attempts C-Recent thoughts or attempts of harming someone else D-Altered mental status due to psychiatric/chem dep etiology E-The behavior exists - add comment PSYCHIATRIC HISTORY Age of onset: 68 Prior hospitalizations: 3-4 times hospitalized Hospital names and dates, if available: [facility] and [facility] 2018. Most Recent Outpatient HX: Psychiatrist Counselor/Case Management Additional information: Legal Status: Guardian/Conservatorship type: Contact name: Contact phone: Other: tax manager Name: Paulette Elder Other legal issues: (Arrests/convictions Current Status) None P.O. Name and Phone #: FAMILY HISTORY Place of : [place] Raised in: [place] # Siblings & order: Pt does not have any sibilings Describe relationships within family of origin: Pt has a manager case that she is close with. Pt was , and . Any psychiatric or substance abuse problems within family of origin: Y Has patient been sexually or physically abused, neglected or been taken advantage of financially? N Has the abuse been reported? N Other pertinent family information: Marital history/significant relationships: Domestic violence: N Children ages & who is caring for them: Pt has no children Is child welfare involved? N Drug history: None Alcohol Use: Frequency: Quantity: Have you ever felt you ought to Cut down on drinking? Have people Annoyed you by criticizing your drinking? Have you ever felt bad or Guilty about your drinking? Have you ever had a drink first thing in the morning to steady your nerves/get rid of a hangover(Eye manager division) CAGE TOTAL 0 If CAGE score is 3 or more, notify provider for withdrawal orders! AXIS SCREENING TOOL [place] I Mood Disorders: [place] II Personality/Mental Retardation: Schizoid Personality [place] III Medical Impairment: HTN UTI [place] IV Problem(s) with: Health care services Primary support group [place] V: 40-Major impairment Additional [place] comments: PERSONAL BACKGROUND Relevant cultural issues (ethnicity, values, beliefs, spiritual): Spiritual Adventism: Rastafari Importance of zoroastrian to patient: Medium What hobbies/interests does the patient have? Coloring Drawing singing Sexual orientation (relevant impact to current treatment): Heterosexual : Where did you serve: Branch of service: Rank: Discharge status: Are you a combat ? Occupational/Work: Do you work? N Do you want to work? N How many hours do you work/week? 0 How many jobs have you had in the past 5 years? 0 Do you need assistance finding a job? N Does the patient need assistance in job training? N Source of income: SSI Does patient have a Payee? N Payee name: Approximate monthly income: 1000 Does patient have adequate funds for next 30 days? Y Education background: High school diploma Highest grade completed: 12th grade Other Educational/training programs: Functional deficits: Explain functional deficits: Current living situation: House/apartment Address/phone where pt. is living: Pt has apartment in [place] Does the patient plan to continue there after DC? Yes Patient lives with: Another facility Will family/significant other be involved in treatment? Other community support services utilized: Pt needs a NF. Pt needs a guardian Support System Available (family/friend) Name: Paulette Elder Relationship: Color Repairer Name: Phone: Relationship: Name: Phone: Relationship: Patient strengths: Family support Motivated Insight Community support Patient's assets: Good self care Verbal Patient's weaknesses: Chronic hx mental illness Health problems Poor social skills Poor relationships Additional weaknesses: Pt does not want to have communication with her family. Patient's perception of current administrator social welfare/case management needs: Pt stated that CM is helpful. PRELIMINARY DISCHARGE PLAN Discharge plan/Community resource contacts: Pt will be d/c to [facility]. Discharge needs: Pt will need to be transported to [facility]. Problems anticipated on discharge: Compliance w/ med regimen Comments: (factors affecting DC plan/pt. response/interventions) SW will need to a referral to NF for placement.
--- NOTE | 2019-01-13 13:58 | NUR ---
ASSUMED PATIENT CARE AT 0730. PATIENT ADMITTED AT 0500 A.M. PATIENT VERY DROWSY, ALERT TO NAME AND PLACE; DID NOT KNOW WHAT TYPE OF UNIT SHE IS ON, OR WHY SHE IS HERE. FLAT, BLUNTED AFFECT. COMPLIANT WITH MEDICATIONS. PATIENT REFUSED LUNCH, TOLD OUTPATIENT PSYCHIATRIST THAT SHE COULD NOT EAT BECAUSE SHE COULD NOT LOOK AT IT. FOOD WAS OPENED AND PATIENT RTEQUESTED THAT FOOD BE CLOSED AGAIN, STILL SAYING THAT SHE COULD NOT LOOK AT THE FOOD. THIS NURSE ASKED PATIENT IF SHE FELT ILL, OR HAVING ANY PAIN. PATIENT DENIED PAIN, STATED THAT SHE HAD A BM YESTERDAY AND THAT IT WAS NURMAL. HOWEVER, HAD REPORTED TO ANOTHER STAFF NURSE THAT HER ABDOMEN HURT. INTERVIEWED BY DR. CISNEROS AFTER LUNCH. CONTINUE TO MONITOR.
--- NOTE | 2019-01-13 15:58 | NUR ---
CARMEN spoke with pillowcase sewer Michelle at [facility] for collaborative documentation. SW was able to complete the psych. assessment.
[2019-01-13 20:31] VITALS: BP 148/98
--- NOTE | 2019-01-13 22:29 | NUR ---
ASSUMED CARE OF THE PT AT 1914 PM. ALERT ET ORIENTED X 2. MAKES NEEDS KNOWN. SHE HAS A FLAT AFFECT. HEART RATE REGULAR, LUNGS CLEAR BILATERALLY, RESP., EVEN, AND UNLABORED. +BS HEARD IN ALL 4 QUADRANTS, ABD SOFT ET NONTENDOR. THE PT IS OBESE. +PP BILATERALLY. DENIES ANXIETY AND DEPRESSION THIS PM. DENIES SI/HI/A/V HALLUNICATIONS. REMAINS ON 12 MINUTE CHECKS FOR HER SAFETY.
[2019-01-14 08:31] VITALS: BP 146/95
--- NOTE | 2019-01-14 12:01 | NUR ---
PATIENT IS UP AND OUT ON THE UNIT, AMBULATES WITH ASSIST OF ROLLER WALKER. PATIENT TOOK ALL HER MORNING MEDICATION WHOLE WITHOUT DIFFICULTY. PATIENT REFUSED BREASKFAST DESPITE ENCOURAGEMENT FROM STAFF. AFFECT IS FAT AND BLUNTED, MODD IS DEPRESSED, PATIENT WITH POOR EYE CONTACT. PATIENT DENIES SUICIDAL AND HOMOCIDAL IDEATION. SHE RATED DEPRESSION 9/10, " I AM NOT ANXIOUS". PATIENT NOTED RESPONDING TO INTERNAL STIMULI, TALKING TO SELF, AND UNSEEN OTHERS. WHEN REDIRECTED, POATIENT STATES, " I AM PRAYING TO MY GOD HE IS GOO ALL THE TIME". PATIENT ENCOURAGE TO NOTIFY STAFF WHEN ABOUT TO USE THE BATHROOM TO OBTAIN URINE SAMPLE, SHE VERBALIZES UNDERSTANDING. PATIENT IS CONTINENT OF BOWEL AND BLADDER, NO SIGN OF ACUTE DISTRESS NOTED, WILL CONTINUE TO REDIRECT AND MONITOR FOR SAFETY.
--- NOTE | 2019-01-15 01:39 | NUR ---
Care assumed of patient at 1900: Patient up and in day room with other peers upon start of shift. Patient alert and oriented x4. Patient presents with flat affect. Isolative from other peers. Difficulty making eye contact with staff upon assessment. Denies SI/HI/AH/VH. Patient reports that she is ready to get her medication regimen correct so she can discharge to a half way house. Bilateral lower extremities dry, flaky; lotion applied. Patient up with FWW with stand by assist for safety. Order obtained to d/c Zoloft 100mg po daily, start Zoloft 150mg po daily. Patient aware of new order. Patient assisted to bed. Pleasant and cooperative with staff.
--- NOTE | 2019-01-15 09:17 | H ---
[facility] [place] [address] HISTORY AND PHYSICAL Name: COLLEEN GAR Room #: 519B-B ADM IN M.R.#: [id number] Admission: 01/13/19 ������������������ Attend Phys: Pelon Guillermo DO Discharge: ������������������ Date of : 52 Report #: [id number] THIS REPORT FOR: //name// CC: Pelon Guillermo FAM physician/PCP DATE OF SERVICE: 01/13/2019 ATTENDING PHYSICIAN: Pelon Guillermo DO ROAD TESTER: Yocasta Brown MD There was an EKG done by, I believe in the ER, QTC of 398. REASON FOR ADMISSION: From ER report, possibly self care failure. HISTORY OF PRESENT ILLNESS: A 68-year-old female brought to the ED via EMS complaining of some muscle weakness, bilateral knee pain. Per EMS, the patient was recently discharged from [facility] and was found by them early in the morning after they received a phone call from some bystanders. They reported that the patient was found in [place] corner of the road, on her way to this hospital. She noted concern for elevated blood pressure here in the ED. She appeared intoxicated with an unknown cause to ER. On Exam in am, patient is quite slowed psychomotorically retarded. It is difficult to get information from her. It sounds like she was at [facility] day before admission for knee pain and then was discharged an then went walking up the street. I think patient is reaching out for help. Her SLUMS is . She is denying SI/HI and AH/VH but is appearing quite helpless. I definitely think there is more to story. PAST MEDICAL HISTORY: Hypertension, schizoaffective disorder, CKD, and arthritis. Denies falling and hitting her head or taking too many pills. However, with me in interview this morning, she reports she is overmedicated. Stress incontinence, arthritis, bilateral knees and elbows bursitis. REVIEW OF SYSTEMS: Denied fever, chills, nausea, vomiting, shortness of breath, chest pain, numbness, tingling or weakness. She reported she was discharged from [facility] the day before presentation at [facility]. PAST SURGICAL HISTORY: Left ankle fracture with pinning. Psychiatric admission on 10/2018 for suicidal ideation, she had a plan to use knives or pills. [facility] [address] [place] [address] HISTORY AND PHYSICAL Name: Lita GARLORELEI Room #: 519BB ADM IN M.R.#: [id number] Admission: 01/13/19 ������������������ Attend Phys: Pelon Guillermo DO Discharge: ������������������ Date of : 52 Report #: [id number] HOME MEDICATIONS: Include vitamin D 5000 international units p.o. daily, simvastatin 20 mg p.o. daily, sertraline 100 mg p.o. daily, risperidone 2 mg p.o. daily, omeprazole 1 capsule p.o. daily, valproic acid 250 mg p.o. b.i.d., Cogentin 1 mg p.o. daily, hydralazine 50 mg p.o. t.i.d., spironolactone 25 mg p.o. b.i.d., triamterene/hydrochlorothiazide 37.5/25 one tab p.o. daily, metoprolol tartrate 25 mg p.o. q. 12 hours, escitalopram oxalate 10 mg p.o. daily, meloxicam 7.5 mg p.o. daily. ALLERGIES: Include NAVANE and AMLODIPINE. SOCIAL HISTORY: Denied alcohol or recreational drug use. REVIEW OF SYSTEMS: Limited due to her psychiatric condition. LABORATORY DATA: Hematology on 01/13/2019, H and H 11.4 and 35.1, white count 5.1, platelets 230. Sodium 146, potassium 3.9, chloride 109, bicarbonate 26, anion gap 11. BUN 15, creatinine 1.1, estimated GFR was 60, glucose 80, calcium 9.5. CK was 44, slightly elevated. Urinalysis showed 109 bacteria, 2+ bilirubin, 1+ blood. Urine ketones were sent for microbiology, there has been greater than 100,000 normal urogenital tomeka found, this was not an infectious culture. PHYSICAL EXAMINATION: Vital signs: Temperature 36.8, pulse 74, respirations 16, BP 156/95, O2 sat 98%. The patient as well had a consultation by Dr. Zendejas. At that time, she evidently was admitted medically. At that time, she was not showing overt psychosis, was concerned for possible hypoglycemia or appetite secondary to SSRI at moderate doses. There was is concern she may have too low of Depakote level at that time. MENTAL STATUS EXAMINATION: This is a well-developed, dysphoric-appearing, disheveled black female appearing stated age. Attention limited. Concentration limited. Speech slow, soft. Eye contact poor. Thought process linear, limited. Thought content, able to respond to questions. Some psychomotor retardation with psychomotor agitation. Denied SI, HI. Denied hopelessness, helplessness. Denied homicidal intent or plan. Memory impaired. [facility] Mental Status Examination was . The patient had impairments in attention, orientation, executive function and some delayed recall. Insight limited. Judgment limited. Fund of knowledge below average. CURRENT MEDICATIONS: Risperidone increased from 2 mg daily to 2 mg p.o. b.i.d.; atorvastatin 10 mg p.o. at bedtime; triamterene/hydrochlorothiazide 1 tab p.o. daily; sertraline 100 mg p.o. daily; metoprolol tartrate 25 mg p.o. b.i.d.; meloxicam 7.5 mg p.o. b.i.d.; docusate sodium 100 mg p.o. b.i.d.; Depakote currently is 250 mg p.o. b.i.d., I think we will go ahead and increase that to 500 mg p.o. b.i.d.; clonidine 0.2 mg q. 72 hours through transdermal patch; citalopram 10 mg p.o. daily; Cogentin 1 mg p.o. daily; pantoprazole 40 mg p.o. [address] [address] HISTORY AND PHYSICAL Name: RINCOLLEEN Room #: 519B-B [facility] IN M.R.#: [id number] Admission: 01/13/19 ������������������ Attend Phys: Pelon Guillermo DO Discharge: ������������������ Date of : 52 Report #: [id number] daily; hydralazine 50 mg p.o. t.i.d.; acetaminophen 650 mg p.o. q. 4 p.r.n. for pain level 1-5. DIAGNOSES: 1. Schizoaffective disorder, unspecified. 2. Cognitive disorder. 3. 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 PLAN: Continue on milieu therapy. Evlaue and stabilize.obtain records from [facility]. Make contact with her case loader operator from [facility]. Medciation chnages as above for now. ESTIMATED LENGTH OF STAY: 7-10 days. STRENGTHS: She is insured. WEAKNESSES: Chronic mental illness, limited compliance. We will attempt as well to reach her case loader operator from [facility]. ��������������������������������������������� <ELECTRONICALLY SIGNED> ���������������������������������������� By: Pelon Guillermo DO ��������������������������������������������� 01/15/19 0917 1950 48 Pelon Guillermo DO /nt
[2019-01-15 10:44] VITALS: BP 136/82
[2019-01-15 13:07] VITALS: BP 136/82
[2019-01-15 17:07] LABS: URINE BILIRUBIN NEGATIVE (Negative); URINE BLOOD NEGATIVE (Negative); URINE CLARITY CLEAR; URINE COLOR YELLOW; URINE GLUCOSE-RANDOM* NEGATIVE (Negative); URINE KETONES NEGATIVE (Negative); URINE LEUKOCYTES-REFLEX TRACE (Negative); URINE NITRITE-REFLEX NEGATIVE (Negative); URINE PROTEIN (DIPSTICK) NEGATIVE (Negative); URINE SPECIFIC GRAVITY <= 1.005 (1.005-1.035); URINE UROBILINOGEN 0.2 E.U./dl (0.2-1.0)
--- NOTE | 2019-01-15 17:27 | NUR ---
PATIENT CALM AND REDIRECTABLE AND AGREEABLE TODAY. OUT ON UNIT FOR GROUPS AND MEALS. QUIET AND DOES NOT ENGAGE IN CONVERSATION - WILL RESPOND TO QUESTIONS ADDRESSED TO HER. STATED NO THOUGHTS OF S/I OR VISUAL OR AUDITORY HALLUCINATIONS. NO PAIN WHEN ASSESSED. VITALS STABLE AND HEART RATE STRONG - LUNGS CLEAR ON AUSCULTATION. STATES DEPRESSED OVER BEING HERE - MEDICATION COMPLIANT. UA OBTAINED. UNDERSTANDS AND MAKES NEEDS KNOWN. ISOLATES FROM PEERS. NO AGITATION OR AGGRESSION WHATSOVER. AFFECT SULLEN AT TIMES AND MOOD DETACHED AND FLAT.
[2019-01-15 19:55] VITALS: BP 124/66
--- NOTE | 2019-01-16 00:49 | NUR ---
Care assumed of patient at 1900: Patient sitting in day room at start of shift. Patient alert and oriented x4. Patient presents with flat affect. Quiet, keeps to herself. Not visualized interacting with peers. Patient will speak with staff with encouragement. Patient reports that she feels depressed and wants to feel herself again. Patient declined HS snack but drank large cup of juice. Patient denies SI/HI/AH/VH. Patient appears hopeful at this time. Patient took medications whole without difficulty. Patient has been resting well this evening.
[2019-01-16 12:02] VITALS: BP 126/88
--- NOTE | 2019-01-16 12:53 | NUR ---
Assumed pt care this am, ambulating the halls with her roller walker. Affect is blunt and flat but would change when time is spent talking to her. Pt denied being anxious, depressed or suicidal, no hallucinations. Pt would be on her own not interacting with her peers. Pt initially refused to eat her lunch stating "if i eat this now what will i have for dinner." Reassured her she will have dinner and encouranged her to eat at least half which she did. POC followed all medication taken with ease.
[2019-01-16 19:31] VITALS: BP 151/82
--- NOTE | 2019-01-17 02:05 | NUR ---
Care assumed of patient at 1900: Patient pleasant and cooperative. Alert and oriented x4. Patient resting in bed at start of shift. Patient stated that she needed to step away for some quiet time. Discussed that this a positive coping skill. Discussed things that she is grateful for and positive parts of her life. Patient reported that she is trying to not worry about her son. She states that she didn't even know he was in town but he had gotten mobbed and killed about a month ago. She states that this is all here say but she does worry about him. Patient encouraged to sit in day room for one hour this evening and interact with staff and peers. Patient was able to sit with another peer and staff and talk about a game that they played earlier in the day. Patient smiled and laughed a couple times. Patient has been speaking quietly and having difficulty with making eye contact. Patient took medications whole without difficulty. Denies SI/HI/AH/VH. No delusions or paranoia observed. Patient appears less depressed and isolative this shift. Patient resting quietly in bed at this time.
[2019-01-17 07:53] VITALS: BP 128/88
[2019-01-17 13:04] VITALS: BP 128/88
--- NOTE | 2019-01-17 13:16 | NUR ---
ASSUMED CARE AT 0700 THIS MORNING. HAS BEEN UP ON THE UNIT FOR MEALS, GROUPS. HAS TAKEN HER MEDICATIONS WITHOUT PROBLEMS NOTED. DENIES SI/HI TODAY, BUT STATES IT CROSSED HER MIND YESTERDAY. DENIES AVH TODAY ALSO. HAS BEEN C/O OF BEING TIRED TODAY. HAS BEEN NOTED TO BE SNOOZING WHILE SITTING ON THE COUCH. HAS BEEN APPROPRIATE WHEN APPROACHED BY STAFF AND PEERS. SPEECH IS VERY QUIET.
--- NOTE | 2019-01-17 16:10 | NUR ---
CARMEN left a voicemail for [place] case resolution specialist through [facility]. SW provided contact information, and requested a return call.
--- NOTE | 2019-01-18 02:56 | NUR ---
Care assumed of patient at 1900: Patient sitting in day room at start of shift. Patient has smiled more this shift but continues to have poor eye contact and isolate self from others. Patient reports her depression as a 7/10. Patient pleasant and cooperative. Patient took medications whole without difficulty. Patient observed to have dry cough. Lungs CTA to all lobes. Respirations even and unlabored. Cough appeared to have cleared up after patient was encouraged to drink a cup of water. Patient denies SI/HI/AH/VH. Patient resting quietly in bed at this time.
[2019-01-18 08:11] VITALS: BP 115/79
--- NOTE | 2019-01-18 15:44 | NUR ---
PATIENT WAS UP IN DAY ROOM WHEN CARE ASSUMED. SHE ATE 100% BREAKFAST, TOOK ALL HER MEDICATION WHOLE WITHOUT DIFFICULTY. PATIENT PARTICIPATED IN GROUP THERAPY. SHE AMBULATES WITH ASSIST OF ROLLER WALKER, GAIT IS SLOW AND STEADY . PATIENT DENIES SUICIDAL AND HOMOCIDAL IDEATION. PATIENT RATED BOTH DEPRESSION AND ANXIETY 7/10. PATIENT DOES NOT INITIATE CONVERSATION, BUT RESPONDS APPROPRIATELY TO ASSESSMENT QUESTIONS. PATIENT'S GOAL TODAY IS TO "GET OUT OF HERE". AFFECT IS FLAT, MOOD IS DEPRESSED. NO SIGN ACUTE DISTRESS NOTED, WILL MONITOR FOR SAFETY.
--- NOTE | 2019-01-18 16:54 | NUR ---
CARMEN sent a referral to [facility], [facility], and [facility]. CARMEN will follow-up on the acceptance on January 19, 2019.
[2019-01-18 21:00] VITALS: BP 138/65
[2019-01-18 21:45] VITALS: BP 138/65
--- NOTE | 2019-01-19 04:35 | NUR ---
Assumed pt care at 1900. Pt A/OX4 and in bed at beginning of shift already. Denied SI/HI,verbalized feeling depressed /10 and denies feeling anxious. Took her HS meds without any problems and has been resting without any distress noted. Will continue to monitor pt.
[2019-01-19 08:00] VITALS: BP 125/75
[2019-01-19 14:11] VITALS: BP 125/75
--- NOTE | 2019-01-19 15:30 | NUR ---
PATIENT HAS BEEN UP AND OUT ON THE UNIT, AMBULATES WITH ASIST OF ROLLER WALKER, GAIT SLIGHTLY UNSTEADY. PATIENT TOOK ALL HER MORNING MEDICATION WHOLE WITHOUT DIFFICULTY. PATIENT IS EATING MEALS AND DRINKING FLUID FAIRLY WELL. PATIENT DENIES SUICIDAL AND HOMOCIDAL IDEATION, SHE RATED BOTH DEPRESSION AND ANXIETY 7/10. PATIENT DENIES HAVING PHYSICAL PAIN. PATIENT'S GOAL TODAY IS TO "MAKE IT THROUGH THE DAY. PATIENT PARTICIPATING IN GROUP THERAPY. AFFECT REMAIN FLAT, MOOD DEPRESSED, NO SIGN OF ACUTE DISTRESS NOTED, WILL MONITOR FOR SAFETY.
[2019-01-19 18:40] LABS: ALBUMIN 3.1 g/dL (3.4-5.0); CALCIUM 10.1 mg/dL (8.5-10.1); CREATININE 1.5 mg/dL (0.6-1.0); POTASSIUM 4.4 mmol/L (3.5-5.1); TOTAL BILIRUBIN 0.2 mg/dL (<0.1-1.0); TOTAL PROTEIN 6.9 g/dL (6.4-8.2)
[2019-01-19 19:32] VITALS: BP 116/73
--- NOTE | 2019-01-19 21:12 | NUR ---
PT SITTING IN DAY ROOM WITH PEERS BUT HEAD DOWN AND BODY SLOUCHED. WHEN PT APPROACHED PT HAS GOOD EYE CONTACT AND SMILING. COMPLIANT WITH HS SNACK AND MEDS. AMBULATES STEADY WITH WALKER. PT STATED HER GOAL WAS ACCOMPLISHED TO SURVIDE THE DAY AND SHE LAUGHED.
[2019-01-20 07:54] VITALS: BP 121/78
[2019-01-20] MEDS ORDERED: ATORVASTATIN CA10 MG PO (12:53)
[2019-01-20] MEDS ORDERED: CATAPRES-TTS 20.2 MG TRANSDERM (12:55)
[2019-01-20] MEDS ORDERED: LOPRESSOR25 PO (12:59)
[2019-01-20] MEDS ORDERED: MOBIC7.5 M1 PO (13:00)
[2019-01-20] MEDS ORDERED: DEPAKOTE500 MG PO (13:02)
[2019-01-20] MEDS ORDERED: RISPERDAL2 MG PO (13:03)
[2019-01-20] MEDS ORDERED: ZOLOFT100 MG PO (13:03)
[2019-01-20] MEDS ORDERED: TRIAMTERENE-HC1 EAC1 PO (13:04)
[2019-01-20] MEDS ORDERED: COLACE 100 MG100 MG PO (13:04)
[2019-01-20] MEDS ORDERED: PROTONIX40 M1 PO (13:05)
--- NOTE | 2019-01-20 13:49 | NUR ---
ASSUMED PT CARE AT 0700. PT HAS FLAT AFFECT, CALM THOUGH ATTENDED GROUPS AND EATING MEALS. IS AWARE THAT SHE WILL BE DISCHARGED TODAY. USES ASSIST OF W/C FOR AMBULATION VSS. WILL CONT POC.
--- NOTE | 2019-01-20 14:52 | NUR ---
CARMEN schedule an roving frame tender from [facility] elavuate pt for RCF. Joel, mention that she will come on today at 1400.
--- NOTE | 2019-01-20 15:41 | NUR ---
Pt was accepted into [facility] for [facility]. Pt will need to be transported to [facility]. Pt will be d/c at 5:00pm.
--- NOTE | 2019-01-20 15:48 | NUR ---
Patient Name: COLLEEN GAR Admission Date: 01/13/19 DISCHARGE PLAN: Pt will be d/c to [facility]. Care Assessment: Pt was assessed by Dr. Guillermo, and diagnosed Schizophrenia, Mild, Major Neurocognitive Disorder. Level II Assessment: None Transportation: Pt will be transported by [facility]. Special Instructions/Notes: Pt will need RCF to assist with care and wellbeing. DISCHARGE TO FACILITY: RCF Facility: [facility] Fax: Address: [address] [place] [id number] Contact Name: Joel PCP: GIANA Psychiatrist: [facility] behavior
--- NOTE | 2019-01-24 08:07 | D ---
[facility] [place] [address] DISCHARGE SUMMARY Name: COLLEEN GAR Room #: 519B-B DIS IN M.R.#: [id number] Admission: 01/13/19 ������������������ Attend Phys: Pelon Guillermo DO Discharge: 01/20/19 ������������������ Date of : 52 Report #: [id number] THIS REPORT FOR: //name// CC: Pelon Guillermo [facility] physician/PCP DATE OF SERVICE: 01/20/2019 INPATIENT PSYCHIATRIC DISCHARGE SUMMARY ATTENDING: Pelon Guillermo DO STOCK GRADER: At the time of discharge is Yocasta Brown MD. DISCHARGE DIAGNOSES: Major depressive disorder, recurrent, moderately severe degree, mild neurocognitive disorder. LABORATORY DATA: On this admission H and H 7.4 and 35.1, white count 5.1, and platelet count 230. Sodium wnl, potassium 4.4, chloride 105, bicarbonate 31, BUN 22, creatinine 1.5, glucose 94, calcium 10.1, magnesium 2.0, AST 25, ALT 27, alk phos 89, albumin 3.1. CK 238, alkaline phosphatase 89. Urinalysis on 01/15 was negative for infection. Valproic acid level was 84 on 09/19/2018. . Urine drug screen was negative as was alcohol. REASON FOR ADMISSION: Found "corner of the road," recently discharged from [facility]. Hospital Course: Pt was admitted to the geriatric psychiatry unit. The patient was found to be very deprerssing endorsing an 8/10 pmost of the early days. The displayed isolative ior withdrawing behavior like falling asleep in dining activity are. Efforts were made to find her an [facility] as she has had several community discharges and then either medical or psychiatric admissions. PHYSICAL EXAMINATION: VITAL SIGNS: Today, temperature 37.0, pulse 60, respirations 15, and BP wnl. GENERAL: This is a well-developed, well-nourished, obese, black female, appearing at least stated age. Attention limited. Concentration limited. Speech slow and soft. Some psychomotor retardation with psychomotor agitation. no SI/ HI. Denied any additional concerns. Today, looking forward to housing, plan Memory care. Prognosis for this patient is guarded due to the history of mental illness, limited support and poor coping skills with disease. [facility] [address] [place] [address] DISCHARGE SUMMARY Name: COLLEEN GAR Room #: 519B-B DIS IN M.R.#: [id number] Admission: 01/13/19 ������������������ Attend Phys: Pelon Guillermo DO Discharge: 01/20/19 ������������������ Date of : 52 Report #: [id number] Prognosis: gaurded ��������������������������������������������� <ELECTRONICALLY SIGNED> ���������������������������������������� By: Pelon Guillermo DO ��������������������������������������������� 01/24/19 0807 [id number] Pelon Guillermo DO /nt
== END 2019-01-20 18:28 | DRG 885 ==
LOC: ER 02:00 → EROBS 04:02 → SBH 04:02
PROVIDERS: Emergency Medicine; Internal Medicine; Nurse Practitioner Family; ADMIT Psychiatry & Neurology Psychiatry
DX: F20.9 Schizophrenia, unspecified (principal); F33.2 Major depressive disorder, recurrent severe without psychotic features; E86.0 Dehydration; R31.9 Hematuria, unspecified; R73.03 Prediabetes; I12.9 Hypertensive chronic kidney disease with stage 1 through stage 4 chronic kidney disease, or unspecified chronic kidney disease; N18.9 Chronic kidney disease, unspecified; M17.0 Bilateral primary osteoarthritis of knee; M19.022 Primary osteoarthritis, left elbow; M19.021 Primary osteoarthritis, right elbow; G31.84 Mild cognitive impairment of uncertain or unknown etiology; Z88.8 Allergy status to other drugs, medicaments and biological substances; Z79.899 Other long term (current) drug therapy
CPT/HCPCS: 10880